=== PATIENT | male | born 1955 | race Caucasian/White ===

== ENCOUNTER 2019-12-25 08:23 | Emergency (ER) | payer OTHER, SELFPAY ==
--- NOTE | 2019-12-25 | XR_ITS ---
EXAMINATION: XR HIP, LEFT CLINICAL INFORMATION: Left hip pain status post injury. COMPARISON: None TECHNIQUE: Two views of the left hip. FINDINGS: Mild left hip degenerative joint changes are seen. There is no acute fracture or dislocation. Mild cam femoroacetabular impingement is noted. The bony pelvis is intact. The soft tissues are unremarkable. IMPRESSION: 1. Mild left hip osteoarthritis. Possible mild left cam femoroacetabular impingement.
[2019-12-25 09:29] VITALS: BP 114/76; PULSE 65; RESP 14; TEMP 36.7; O2SAT 97; BMI 21.4
--- NOTE | 2019-12-25 09:52 | ED_ITS ---
HPI - Extremity Injury (Lower) General Chief Complaint: Extremity Injury, Lower Stated Complaint: left leg pain from lifting Time Seen by Provider: 12/25/19 09:12 Source: patient Mode of arrival: ambulatory Limitations: no limitations History of Present Illness HPI Narrative: 64 yo male with no known medical history here with left hip pain with radiation to the left thigh and hip s/p lifting a heavy object on Wednesday. Has tried topical CBD with continued symptoms. No numbness/tingling/incontinence. MD complaint: hip injury Onset (ago): day(s) Injury: Left: hip Type of Injury: other (lifting ) Place: home Severity: moderate Relieving factors: cold therapy and rest Exacerbating factors: weight bearing, movement and palpation Context: other (lifting ) Associated symptoms: ambulatory Other symptoms: none Treatments prior to arrival: cold therapy Related Data Previous Rx's Medication Instructions Recorded cyclobenzaprine 10 mg PO Q8H #20 tab 12/25/19 lidocaine [Lidoderm] 1 patch TOPICAL Q24H #15 ea 12/25/19 Allergies Allergy/AdvReac Type Severity Reaction Status Date / Time ibuprofen AdvReac Stomach Verified 12/25/19 09:27 Upset Review of Systems Review of Systems: Yes all other systems are reviewed and are negative Constitutional: Constitutional: Denies body ache(s), Denies chills and Denies weakness Eyes: Eyes: Denies change in vision ENT: Reports system reviewed and no additional complaints, except as documented Cardiovascular: Cardiovascular: Denies chest pain, Denies leg edema and Denies dyspnea Respiratory: Respiratory: Denies cough and Denies dyspnea Gastrointestinal: Gastrointestinal: Denies abdominal pain, Denies nausea and Denies vomiting Genitourinary: Genitourinary: Reports no additional male genitourinary complaints and Denies urinary incontinence Musculoskeletal: Musculoskeletal: Denies abnormal gait, Reports arthralgias, Denies numbness and Denies tingling Integumentary/Breasts: Skin/Breast: Denies rash Neurologic: Denies Abnormal speech present, Denies abnormal gait, Denies focal weakness, Denies numbness, Denies Sensory deficit (Neuro), Denies tingling, Denies paresthesias and Denies weakness Psychiatric: Psychiatric: Reports no additional psychiatric complaints PMFSH Past Medical History Attestation statement: The following information was validated with the patient. Source: obtained from family Medical History No known health problems No known health problems No known health problems Social History Social History Alcohol intake: never Smoking Status: Never smoker Use of substances other than those prescribed or required for medical reasons: No Advance Directives: No Advance Directives Information Provided: Yes Physical Exam Vital Signs and I&O and Narrative: Vital Signs and I&O: Vital Signs Temp 98.0 F 12/25/19 09:29 Pulse 65 12/25/19 09:29 Resp 14 12/25/19 09:29 BP 114/76 12/25/19 09:29 Pulse Ox 97 12/25/19 09:29 Intake & Output 12/24/19 12/25/19 12/25/19 18:59 06:59 18:59 Weight 62.142 kg Body Mass Index 21.4 Const: General: cooperative, healthy appearing and alert Orientation/consciousness: patient oriented x3 Limitations: no limitations HENMT: Head: Yes normal to inspection Ears: hearing grossly normal bilaterally General nose exam: Normal external nose present Mouth: Normal oral and palatal mucosa present Throat: Yes posterior oropharynx normal Eyes: General: appearance normal, both eyes and all related structures Pupils: Equal, round and reactive pupils present Neck: Neck: Yes normal visual inspection Chest: Chest palpation & inspection: normal inspection of the chest Resp: Effort & Inspection: normal respiratory effort Auscultation: clear to auscultation bilaterally Cardio: Palpation: normal PMI Rate: regular rate Rhythm: regular rhythm Peripheral pulses: Peripheral pulses 2+ throughout, popliteal pulses present, posterior tibial pulses present and dorsalis pedis present GI: Inspection: Yes normal to inspection Palpation (GI): Soft to palpation and nontender Auscultation: normal bowel sounds : General: Yes no CVA tenderness Back/Spine/Pelvis: Back: no CVA tenderness Thoracic/Lumbar Spine: thoracic and lumbar spine normal to inspection, No paraspinal muscle tenderness, No lumbar spinal tenderness and straight leg raise positive (left ) Sacroiliac joints: on the left tender to palpation and by passive hyperextension of lower ext Skin: General skin exam: no rashes or lesions noted Neuro: General: patient oriented x3, Normal light touch and pain sensation and normal sensation to monofilament Cranial nerves: Yes CN's II-XII intact bilaterally and Yes Equal, round and reactive pupils present Cognition (Neuro): normal cognition Speech: No Abnormal speech present Gait exam (Ne uro): Normal gait present Motor exam (neuro): 5/5 motor strength present throughout Sensory Exam: No Sensory deficit (Neuro) Coordination: [id number] test normal and islc-[id number] test normal Extrem: General: Yes normal to inspection Right lower extremity: normal to inspection Left lower extremity: normal to inspection and hip/thigh (tenderness over posterior hip, FROM, pain with straight leg raise, +spasm) Details: normal to inspection; no swelling MDM - Extremity Injury (Lower) MDM Narrative Medical decision making narrative: x-ray negative. Exam c/w with sacroilitis, muscular spasm. Discussed supportive care and follow-up with orthopedics if no better. Imaging Data hip x-ray: Attestation: I personally reviewed and interpreted this imaging study as follows: My impression: Mild OA. no acute fracture Radiologist's impression: EXAMINATION: XR HIP, LEFT CLINICAL INFORMATION: Left hip pain status post injury. COMPARISON: None TECHNIQUE: Two views of the left hip. FINDINGS: Mild left hip degenerative joint changes are seen. There is no acute fracture or dislocation. Mild cam femoroacetabular impingement is noted. The bony pelvis is intact. The soft tissues are unremarkable. IMPRESSION: 1. Mild left hip osteoarthritis. Possible mild left cam femoroacetabular impingement. Discharge Plan Discharge Clinical Impression: Sacroiliac inflammation Patient Disposition: Home, Self-Care Instructions: Sacroiliitis (ED) Additional Instructions: Heat to the area, gentle stretching of the affected side Continue Tylenol as discussed Prescriptions: New cyclobenzaprine 10 mg tablet 10 mg PO Q8H Qty: 20 RF: 0 lidocaine [Lidoderm] 5 % adhesive patch,medicated 1 patch topical Q24H Qty: 15 RF: 0 Referrals: Brady Pruett MD [Physician] - 5 days (if no better) Neelam Dyer MD [Primary Care Provider] - 2 days Stand Alone Forms: Work/School Release
== END 2019-12-25 11:39 | disposition home or self-care (01) ==
PROVIDERS: Emergency Provider Internal Medicine; PCP Internal Medicine
DX: M46.1 Sacroiliitis, not elsewhere classified (principal); M25.552 Pain in left hip
CPT/HCPCS: 73502; 99283; 99284

== ENCOUNTER 2020-02-09 08:58 | Outpatient (REF) | payer OTHER, SELFPAY ==
--- NOTE | 2020-02-09 09:15 | MR_ITS ---
EXAMINATION: MR LUMBAR SPINE WITHOUT CONTRAST CLINICAL INFORMATION: Left leg pain. COMPARISON: X-ray dated 07/22/2019. TECHNIQUE: MRI of the lumbar spine was obtained using routine sequences without contrast. FINDINGS: VERTEBRAL BODIES AND PARASPINAL STRUCTURES: The marrow signal is homogeneous. There are no compression fractures or subluxations. There is mild edema in the left posterior paraspinal soft tissues from L5 to S1, presumably stress-related in etiology. Small renal cysts noted. The imaged bony pelvis is unremarkable. CONUS MEDULLARIS AND CAUDA EQUINA: Normal, terminating at the level of T12. No lower cord signal abnormality is seen. The cauda equina nerve roots are normal. A small fatty filum is visible, measuring approximately 1.5 mm in transverse diameter. SPINAL LEVELS: L1-L2: Well-hydrated normal appearance of the disc. L2-L3: Normal disc hydration. Patent central canal. L3-L4: Left foraminal disc protrusion mildly distorts the exiting L3 nerve root. L4-L5: Left foraminal disc protrusion and mild endplate spurring results in [id number]-ml-zlqrezja encroachment. L5-S1: Mild disc bulge and endplate spurring with mild bilateral foraminal encroachment. No central canal stenosis. MR/MR lumbar spine wo con IMPRESSION: Left foraminal disc protrusion at L3-L4 with mild distortion of the exiting left L3 nerve root. Additional left foraminal disc protrusion at L4-L5 without nerve root impingement. Mild spondylosis at L5-S1 with mild bilateral foraminal narrowing. Mild edema in the lower left posterior paraspinal soft tissues.
== END 2020-02-09 08:59 | disposition home or self-care (01) ==
LOC: HO.MRI 08:58
PROVIDERS: PCP Internal Medicine; Visit Provider Internal Medicine
DX: M51.36 Other intervertebral disc degeneration, lumbar region (principal)
CPT/HCPCS: 72148

== ENCOUNTER 2020-03-28 08:00 | Outpatient (RCR) | payer OTHER, SELFPAY ==
--- NOTE | 2020-05-31 08:34 | MHC.PT.DC ---
[facility] [place] Office [place] Office [place] Office [address] Demetrio Silveira [address] [phone] F: [phone] F: [phone] F: [phone] F: [phone] Physical Therapy Discharge Report Diagnosis: intervertebral disc degeneration, lumbar region Date of Surgery: NA Date of Evaluation: 02/22/20 Date of Discharge: 04/24/20 Treatments to Date: 9 Cancellations to Date: 0 No Shows to Date: 0 Discharge Status: Independent with HEP Recommend MD Follow-up Discharge Summary: Standing side glides and prone manual side glides around upper lumbar are most beneficial. He reported only back pain during these maneuvers and no leg numbness. I continued pelvic and leg strengthening to improve functional use of legs. Pt stopped his course of PT. He did not finish his POC. It was not a scheduled d/c. Electronically signed by: Zo Pathak PT DPT Please sign and return to therapist. Thank you for your referral.
== END 2020-05-31 09:01 | disposition other institution (70) ==
LOC: HO.PT 08:00
PROVIDERS: PCP Internal Medicine; Visit Provider Internal Medicine
DX: M51.36 Other intervertebral disc degeneration, lumbar region (principal)
CPT/HCPCS: 97014; 97110; 97140; 97162

== ENCOUNTER 2020-05-27 07:56 | Outpatient (REF) | payer OTHER, SELFPAY ==
[2020-05-27 08:36] LABS: MANUAL DIFF FLAG NO
[2020-05-27 08:44] LABS: Basophils Percent Auto 0.6 % (0-2); Eosinophils Absolute Auto 0.4 X10*3/uL (0.0-0.4); Eosinophils Percent Auto 7.1 % (0-4); Hematocrit 44.8 % (42-52); Hemoglobin 15.1 g/dl (14.0-18.0); Imm Gran Abs Auto 0.03 X10*3/uL (0.00-0.03); Imm Gran Pct Auto 0.5 % (0.0-0.4); Lymphocytes Absolute Auto 1.9 X10*3/uL (1.2-4.9); Lymphocytes Percent Auto 29.9 % (20-40); Mean Corpuscular HGB Conc 33.7 g/dl (31.0-36.0); Mean Corpuscular Hemoglobin 32.1 pg (27.0-33.0); Mean Corpuscular Volume 95.1 fL (80-98); Mean Platelet Volume 8.2 fL (9.4-12.4); Monocytes Absolute Auto 0.5 X10*3/uL (0.1-1.2); Monocytes Percent Auto 7.8 % (2-11); Neutrophils Absolute Auto 3.4 X10*3/uL (2.0-8.3); Neutrophils Percent Auto 54.1 % (45-73); Platelet Count 305 X10*3/uL (160-400); Red Blood Count 4.71 X10*6/uL (4.60-5.80); Red Cell Distribution Width 12.4 % (11.0-16.0); White Blood Count 6.2 X10*3/uL (4.8-10.8)
[2020-05-27 09:14] LABS: Alanine Aminotransferase 42 U/L (0-40); Albumin Level 4.1 g/dL (3.5-5.0); Alkaline Phosphatase 84 U/L (39-117); Anion Gap 11 (12-20); Aspartate Amino Transferase 29 U/L (5-37); Bilirubin Total 0.9 mg/dL (0.0-1.0); Blood Urea Nitrogen 16 mg/dL (9-16); Calcium 8.5 mg/dL (8.4-10.2); Carbon Dioxide 28 mmol/L (22-29); Chloride 104 mmol/L (96-108); Cholesterol 231 mg/dL; Estimated Glomerular Filt Rate > 60; Glucose Fasting 103 mg/dL (60-99); HDL Cholesterol 46 mg/dL; LDL Cholesterol Calculated 158 mg/dl; Potassium 4.3 mmol/L (3.3-5.1); Sodium 139 mmol/L (135-145); Total Protein 7.4 g/dL (6.5-8.0); Triglycerides 139 mg/dL
== END 2020-05-27 07:57 | disposition home or self-care (01) ==
LOC: HO.LAB 07:56
PROVIDERS: PCP Internal Medicine; Visit Provider Internal Medicine
DX: D70.9 Neutropenia, unspecified (principal); M47.816 Spondylosis without myelopathy or radiculopathy, lumbar region; E78.5 Hyperlipidemia, unspecified
CPT/HCPCS: 36415; 80053; 80061; 85025

== ENCOUNTER 2020-12-17 14:49 | Outpatient (REF) | payer OTHER, SELFPAY ==
[2020-12-17 15:10] LABS: MANUAL DIFF FLAG NO
[2020-12-17 15:21] LABS: Basophils Percent Auto 0.6 % (0-2); Eosinophils Absolute Auto 0.2 X10*3/uL (0.0-0.4); Eosinophils Percent Auto 2.9 % (0-4); Hematocrit 43.9 % (42-52); Hemoglobin 14.8 g/dl (14.0-18.0); Imm Gran Abs Auto 0.02 X10*3/uL (0.00-0.03); Imm Gran Pct Auto 0.3 % (0.0-0.4); Lymphocytes Absolute Auto 1.5 X10*3/uL (1.2-4.9); Lymphocytes Percent Auto 23.4 % (20-40); Mean Corpuscular HGB Conc 33.7 g/dl (31.0-36.0); Mean Corpuscular Hemoglobin 32.5 pg (27.0-33.0); Mean Corpuscular Volume 96.3 fL (80-98); Mean Platelet Volume 8.2 fL (9.4-12.4); Monocytes Absolute Auto 0.5 X10*3/uL (0.1-1.2); Monocytes Percent Auto 7.7 % (2-11); Neutrophils Absolute Auto 4.1 X10*3/uL (2.0-8.3); Neutrophils Percent Auto 65.1 % (45-73); Platelet Count 295 X10*3/uL (160-400); Red Blood Count 4.56 X10*6/uL (4.60-5.80); Red Cell Distribution Width 12.5 % (11.0-16.0); White Blood Count 6.3 X10*3/uL (4.8-10.8)
[2020-12-17 15:56] LABS: Alanine Aminotransferase 22 U/L (0-40); Albumin Level 4.1 g/dL (3.5-5.0); Alkaline Phosphatase 79 U/L (39-117); Anion Gap 10 (12-20); Aspartate Amino Transferase 21 U/L (5-37); Blood Urea Nitrogen 11 mg/dL (9-16); Calcium 8.9 mg/dL (8.4-10.2); Carbon Dioxide 30 mmol/L (22-29); Chloride 103 mmol/L (96-108); Estimated Glomerular Filt Rate > 60; Glucose Random 91 mg/dL (60-115); Potassium 4.5 mmol/L (3.3-5.1); Sodium 138 mmol/L (135-145); Total Protein 7.3 g/dL (6.5-8.0)
== END 2020-12-17 14:50 | disposition home or self-care (01) ==
LOC: HO.LAB 14:49
PROVIDERS: PCP Internal Medicine; Visit Provider Nurse Practitioner Family
DX: M79.89 Other specified soft tissue disorders (principal)
CPT/HCPCS: 36415; 80053; 85025

== ENCOUNTER 2020-12-23 07:07 | Outpatient (REF) | payer OTHER, SELFPAY ==
[2020-12-23 07:46] LABS: Alanine Aminotransferase 28 U/L (0-40); Albumin Level 4.2 g/dL (3.5-5.0); Alkaline Phosphatase 80 U/L (39-117); Anion Gap 10 (12-20); Aspartate Amino Transferase 24 U/L (5-37); Bilirubin Total 1.4 mg/dL (0.0-1.0); Blood Urea Nitrogen 13 mg/dL (9-16); Carbon Dioxide 28 mmol/L (22-29); Chloride 105 mmol/L (96-108); Cholesterol 216 mg/dL; Estimated Glomerular Filt Rate > 60; Glucose Fasting 101 mg/dL (60-99); HDL Cholesterol 49 mg/dL; LDL Cholesterol Calculated 146 mg/dl; Potassium 4.2 mmol/L (3.3-5.1); Sodium 139 mmol/L (135-145); Total Protein 7.5 g/dL (6.5-8.0); Triglycerides 108 mg/dL
== END 2020-12-23 07:08 | disposition home or self-care (01) ==
LOC: HO.LAB 07:07
PROVIDERS: PCP Internal Medicine; Visit Provider Internal Medicine
DX: R73.02 Impaired glucose tolerance (oral) (principal); E78.5 Hyperlipidemia, unspecified
CPT/HCPCS: 36415; 80053; 80061

== ENCOUNTER 2021-01-25 10:01 | Emergency (ER) | payer OTHER, SELFPAY ==
--- NOTE | ~2021-01-25 | XR_ITS ---
EXAMINATION: XR CHEST CLINICAL INFORMATION: Shortness of breath. COMPARISON: 05/30/2019 chest radiographs. TECHNIQUE: Frontal view of the chest was obtained. FINDINGS: No significant abnormality is noted involving the heart, lungs, mediastinum, bony thorax or soft tissues. XR/XR chest 1V IMPRESSION: No acute cardiopulmonary process.
[2021-01-25 10:05] VITALS: BP 128/75; PULSE 70; RESP 19; TEMP 36.1; O2SAT 96; BMI 21.9
--- NOTE | 2021-01-25 10:26 | ECG_ITS ---
Test Reason : CHEST PAIN Blood Pressure : / mmHG Vent. Rate : 066 BPM Atrial Rate : 066 BPM P-R Int : 168 ms QRS Dur : 104 ms QT Int : 380 ms P-R-T Axes : 053 -31 028 degrees QTc Int : 398 ms Normal sinus rhythm Left axis deviation RSR' or QR pattern in V1 suggests right ventricular conduction delay Abnormal ECG No previous ECGs available Referred By: Malinda Gutiérrez Electronically Signed By:ANNE-MARIE GUIDRY MD
[2021-01-25 10:29] VITALS: BP 130/69; PULSE 68; RESP 16; O2SAT 96
--- NOTE | 2021-01-25 10:29 | ED.URI ---
HPI - URI/Sore Throat General Chief Complaint: Upper Respiratory Symptoms Stated Complaint: chest pain with cough Time Seen by Provider: 01/25/21 10:08 History of Present Illness HPI Narrative: 65-year-old male presents today with having coughing upper respiratory symptoms. Symptom has been ongoing for the last few months. Patient denies any weight loss. Denies any fever chills. Patient did not receive his coronavirus vaccine. Related Data Previous Rx's Medication Instructions Recorded doxycycline hyclate 100 mg tablet 100 mg PO BID 7 Days #14 tab 12/17/20 azithromycin 250 mg tablet See Rx Instructions .ROUTE 01/25/21 .COMPLEX #6 tab Allergies Allergy/AdvReac Type Severity Reaction Status Date / Time celecoxib [Celebrex] Allergy Intermediate palpitation Verified 12/18/20 09:57 s ibuprofen [IBUPROFEN] Allergy Mild STOMACH Verified 12/18/20 09:57 UPSET Review of Systems Review of Systems: Positive generalized malaise. Positive coughing upper respiratory symptoms All systems reviewed otherwise negative [facility] Past Medical History Attestation statement: The following information was validated with the patient. Medical History Coccyalgia Dyslipidemia Eosinophilia Fx sacrum/coccyx-closed Impaired glucose tolerance Lumbar degenerative disc disease Lumbar spondylosis Neutropenia Osteoarthritis of left hip Spider bite Surgical History No pertinent past surgical history Family History Family History Father Pancreatic cancer Mother Stomach cancer Brother No problems noted. Sister No problems noted. Son No problems noted. Father Pancreatic cancer Mother Stomach cancer Brother No problems noted. Sister No problems noted. Son No problems noted. Social History Social History Housing: House Alcohol intake: former Patient Tobacco Use Status: Never used Tobacco e-Cigarette/Vaping Use: Never Used Second Hand Smoke Exposure: Yes Advance Directives: No Advance Directives Information Provided: No service: No Current occupational status: employed Physical Exam Vital Signs: Vital Signs: Last Vital Signs Temp 97 F 01/25/21 10:05 Pulse 68 01/25/21 10:29 Resp 16 11/06/21 10:29 BP 130/69 01/25/21 10:29 Pulse Ox 96 01/25/21 10:29 Body Mass Index 21.9 Appearance: Alert. Oriented X3. No acute distress. Eyes: Pupils equal, round and reactive to light. ENT: Pharynx normal. Neck: Normal inspection. Neck supple. No lymph nodes noted. No crepitus CVS: Normal heart rate and rhythm. Pulses normal. Normal S1 and S2 Respiratory: No respiratory distress. Breath sounds normal. No Wheezing. No rales Abdomen: Soft and nontender. No rigidity. No distention. good BS x4 Skin: Skin warm and dry. Normal skin color. Normal skin turgor. Extremities: No lower extremity edema. Neurovascular intact to all extremities. No Lacerations. No Rash Neuro: Oriented X 3. No motor deficit. No sensory deficit. Moving all extermities. No slurred speech MDM - URI/Sore Throat MDM Narrative Medical decision making narrative: Patient's EKG showed a sinus pattern heart rate is 70 NM QRS QT within normal limits is no acute ST segment elevation. Patient has coughing congestion upper respiratory symptoms. COVID test was negative. Chest x-ray did not show any focal infiltrate. O2 sat is normal. Will discharge patient home. In stable condition. Medical Records Attestation: I reviewed the patient's medical records. Lab Data Attestation: I reviewed the patient's lab results. Labs: Lab Results 01/25/21 Range/Units 10:46 Influenza Type A (PCR) NEGATIVE (Negative) Influenza Type B (PCR) NEGATIVE (Negative) RSV RNA Qual (PCR) NEGATIVE (Negative) SARS-CoV-2 RNA (RT-PCR) NEGATIVE (Negative) Discharge Plan Discharge Clinical Impression: Upper respiratory infection Patient Disposition: Home, Self-Care Instructions: Upper Respiratory Infection (ED) Prescriptions: New azithromycin 250 mg tablet See Rx Instructions .ROUTE .COMPLEX Qty: 6 RF: 0 No Action doxycycline hyclate 100 mg tablet 100 mg PO BID 7 Days Qty: 14 RF: 0 Referrals: Neelam Dyer MD [Primary Care Provider] - 2 days
--- NOTE | 2021-01-25 10:31 | PC.NURSE ---
patient awake and alert. skin pwd, resp even and non labored. speaking in full, clear sentences. c/o cough over the past few months, worsening over the past few days. c/o headache and slight chest wall pain with cough. NSR via tele.
[2021-01-25 12:07] LABS: Influenza A PCR NEGATIVE (Negative); Influenza B PCR NEGATIVE (Negative); Resp Syncy Virus RNA Qual PCR NEGATIVE (Negative); SARS COV2 PCR INHOUSE NEGATIVE (Negative)
== END 2021-01-25 13:11 | disposition home or self-care (01) ==
PROVIDERS: Emergency Provider Emergency Medicine Emergency Medical Services; PCP Internal Medicine
DX: R07.9 Chest pain, unspecified (principal); R05.9 Cough, unspecified; Z20.822 Contact with and (suspected) exposure to COVID-19; Z79.899 Other long term (current) drug therapy
CPT/HCPCS: 0241U; 36415; 71045; 93005; 99283; 99284

== ENCOUNTER 2021-02-06 13:48 | Emergency (ER) | payer OTHER, SELFPAY ==
[2021-02-06 14:25] VITALS: BP 120/71; PULSE 68; RESP 17; TEMP 36.4; O2SAT 95; BMI 21.9
--- NOTE | 2021-02-06 15:16 | ED_ITS ---
HPI - Eye Problem General Chief complaint: Eye Problems Stated complaint: l eye red painful Time Seen by Provider: 02/06/21 14:44 Source: patient Mode of arrival: ambulatory Limitations: no limitations History of Present Illness HPI Narrative: 65-year-old male with no known medical history presents to the emergency department with left eye redness since this morning X4 hours. Patient states that after he got out of the shower he noted that his eye was stinging, when he looked in the mirror his left eye appeared to have blood in it in the lateral aspects. He states he felt discomfort but he did not feel pain. He also mentions that earlier today he was holding a glass, that broke, and he is unsure whether or not he has glass in his left eye. He states he does not feel like there is any foreign bodies in the eyes. He denies vision changes, photophobia, pain with eye movement, headache, history of hypertension, dizziness, chest pain, shortness of breath, fevers, chills, palpitations, cough, sneezing. MD chief complaint: eye pain and eye redness Onset (ago): hour(s) (4) Onset description: sudden Duration: constant Location: left eye Eye Symptoms: other ( discomfort ) Place: home Mechanism: none Severity: mild Associated symptoms: none Treatments Prior to Arrival: none Related Data Previous Rx's Medication Instructions Recorded azithromycin 250 mg tablet See Rx Instructions .ROUTE 01/25/21 .COMPLEX #6 tab guaifenesin 100 mg/5 mL oral liquid 200 mg (10 mL) PO Q6H PRN #473 ml 01/29/21 Allergies Allergy/AdvReac Type Severity Reaction Status Date / Time celecoxib [Celebrex] Allergy Intermediate palpitation Verified 02/06/21 14:24 s ibuprofen [IBUPROFEN] Allergy Mild STOMACH Verified 02/06/21 14:24 UPSET Review of Systems Review of Systems: Constitutional : No Weight loss, No Fever, No Chills, No Fatigue, No Malaise ENT/Mouth : No sore throat, No Rhinorrhea Eyes: No Eye Pain, No Swelling, + Redness, + left eye discomfort Cardiovascular : No Chest Pain, No SOB, No Dyspnea on Exertion, No Orthopnea, No Edema, No Palpitations Respiratory : No Cough, No Sputum, No Wheezing Gastrointestinal : No Nausea, No Vomiting, No Diarrhea, No Constipation, No abdominal Pain, No Hematochezia, No Melena Genitourinary : No Dysuria, No Urinary Frequency, No Hematuria, Musculoskeletal : No joint pain, No Myalgias, No Joint Swelling Skin : No Skin Lesions, No rash Neuro : No Weakness, No Numbness, No Dizziness, No Headache All other systems reviewed and are negative [facility] Past Medical History Attestation statement: The following information was validated with the patient. Source: old records reviewed and nursing notes reviewed Medical History Coccyalgia Dyslipidemia Eosinophilia Fx sacrum/coccyx-closed Impaired glucose tolerance Lumbar degenerative disc disease Lumbar spondylosis Neutropenia Osteoarthritis of left hip Spider bite Surgical History No pertinent past surgical history Family History Family History Father Pancreatic cancer Mother Stomach cancer Brother No problems noted. Sister No problems noted. Son No problems noted. Father Pancreatic cancer Mother Stomach cancer Brother No problems noted. Sister No problems noted. Son No problems noted. Social History Social History Housing: House Alcohol intake: former Patient Tobacco Use Status: Never used Tobacco e-Cigarette/Vaping Use: Never Used Second Hand Smoke Exposure: Yes Advance Directives: No Advance Directives Information Provided: Yes service: No Current occupational status: employed Physical Exam Vital Signs: Vital Signs: Last Vital Signs Temp 97.5 F 02/06/21 14:25 Pulse 68 02/06/21 14:25 Resp 17 02/06/21 14:25 BP 120/71 02/06/21 14:25 Pulse Ox 95 02/06/21 14:25 Body Mass Index 21.9 Appearance: Alert.? Oriented X3.? No acute distress.? Head: Normocephalic, atraumatic, no step-offs or deformities Eyes: Pupils equal, round and reactive to light.?+ subconjunctival hemorrhage noted to the lateral aspect of left eye. Normal extraocular movements. Normal right eye. No visible foreign body in bilateral eyes. ENT: Pharynx normal.? Neck: Normal inspection.? Neck supple.? CVS: Normal heart rate and rhythm.? Pulses normal.? Respiratory: No respiratory distress.? Breath sounds normal.? Abdomen: Soft and nontender.? Skin: Skin warm and dry.? Normal skin color.? Normal skin turgor.? Extremities: No lower extremity edema.? No calf ttp. 5/5 strength to bilateral upper and lower extremities Back: No midline tenderness, no C-spine tenderness, full range of motion, no CVA tenderness bilaterally Neuro: Oriented X 3.? No motor deficit.? No sensory deficit. Course Reevaluation(s) Reevaluation #1: No uptake seen on fluorescein stain. No corneal abrasions or foreign bodies noted. This is likely a subconjunctival hemorrhage he has been advised to follow-up with ophthalmology. I am not concerned for bacterial conjunctivitis. 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 Safe for DC home Time: 15:40 MDM - Eye Problem MDM Narrative Medical decision making narrative: 1515 65-year-old male with no known medical history presents to the emergency department with left eye redness since this morning X4 hours. Denies trauma to the area. Denies pain but reports slight discomfort. Denies vision changes, pain with eye movment, NAVA, coughing, sneezing, straining. Upon physical examination patient appears comfortable and is sitting upright on a recliner. He appears to be in no distress. Vital signs are stable and patient is not noted to be hypertensive. S1 and S2 appreciated. No murmurs. Lungs are clear to auscultation. Abdomen soft nontender nondistended. There is subconjunctival hemorrhage noted to the lateral aspect of the left eye. Right eye is normal. Pupils equal round reactive to light bilaterally. No photophobia was shining light in bilateral eyes. Extraocular movements intact. Patient's vision is not affected, therefore visual acuity test will not be done. Patient able to read things in front of him. Bilateral pressures were taken of the eyes, left eyes pressure was 15, right eye was 16. Unlikely that this is closed angle glaucoma. Unlikely that this is traumatic iritis. I will do a fluorescein stain to ensure there is no foreign bodies within the eye, and to ensure that there is no corneal abrasions. At glance, there is no evident foreign bodies in the eye. Critical Care Time Critical Care Time Critical Care Time: No Discharge Plan Discharge Clinical Impression: Subconjunctival hemorrhage Qualifiers: Laterality: left Qualified Code(s): H11.32 - Conjunctival hemorrhage, left eye Patient Disposition: Home, Self-Care Instructions: Subconjunctival Hemorrhage (ED) Additional Instructions: Follow up with ophthalmology Follow-up with your primary care provider this week. Return to the emergency department with new or worsening symptoms. In case of emergency call 911 Prescriptions: No Action azithromycin 250 mg tablet See Rx Instructions .ROUTE .COMPLEX Qty: 6 RF: 0 guaifenesin 100 mg/5 mL liquid 200 mg PO Q6H PRN (Reason: cough) Qty: 473 RF: 0 Referrals: Hasmukh Wiseman [Physician] - 2 days Neelam Dyer MD [Primary Care Provider] - 2 days Stand Alone Forms: Work/School Release Interventions: ED Discharge Assessment Last Done: 02/06/21 15:56 Discharge Date/Time: 02/06/21 15:56
[2021-02-06] MEDS: Tetracaine HCl/PF 0.5% Oph Sol 4 ML DROPS 1 DROP EYE-BOTH (15:27)
[2021-02-06] MEDS: Fluorescein Sodium STRIP 1 STRIP EYE-BOTH (15:27)
== END 2021-02-06 15:56 | disposition home or self-care (01) ==
PROVIDERS: Emergency Provider Emergency Medicine Emergency Medical Services; PCP Internal Medicine
DX: H11.32 Conjunctival hemorrhage, left eye (principal)
CPT/HCPCS: 99283

== ENCOUNTER 2021-04-21 06:54 | Outpatient (REF) | payer OTHER, SELFPAY ==
[2021-04-21 08:02] LABS: Alanine Aminotransferase 45 U/L (0-40); Albumin Level 3.8 g/dL (3.5-5.0); Alkaline Phosphatase 91 U/L (39-117); Anion Gap 10 (12-20); Aspartate Amino Transferase 34 U/L (5-37); Bilirubin Total 0.6 mg/dL (0.0-1.0); Blood Urea Nitrogen 12 mg/dL (9-16); Calcium 8.6 mg/dL (8.4-10.2); Carbon Dioxide 29 mmol/L (22-29); Chloride 104 mmol/L (96-108); Cholesterol 227 mg/dL; Estimated Glomerular Filt Rate > 60; Glucose Fasting 93 mg/dL (60-99); HDL Cholesterol 40 mg/dL; LDL Cholesterol Calculated 168 mg/dl; Potassium 4.2 mmol/L (3.3-5.1); Sodium 139 mmol/L (135-145); Total Protein 7.4 g/dL (6.5-8.0); Triglycerides 96 mg/dL
== END 2021-04-21 06:55 | disposition home or self-care (01) ==
LOC: HO.LAB 06:54
PROVIDERS: PCP Internal Medicine; Visit Provider Internal Medicine
DX: R73.02 Impaired glucose tolerance (oral) (principal); E78.5 Hyperlipidemia, unspecified
CPT/HCPCS: 36415; 80053; 80061

== ENCOUNTER 2021-05-18 10:03 | Emergency (ER) | payer OTHER, SELFPAY ==
--- NOTE | ~2021-05-18 | XR_ITS ---
EXAMINATION: XR CHEST CLINICAL INFORMATION: Pain. COMPARISON: Chest done on 01/25/2021. TECHNIQUE: Frontal view of the chest was obtained. FINDINGS: No significant abnormality is noted involving the heart, lungs, mediastinum, bony thorax or soft tissues. No significant change since prior study. XR/XR chest 1V IMPRESSION: No radiographic evidence of acute cardiopulmonary disease, unchanged since 01/25/2021.
[2021-05-18 10:11] VITALS: BP 121/60; PULSE 70; RESP 18; TEMP 36.9; O2SAT 97; BMI 22.5
--- NOTE | 2021-05-18 10:23 | ED.GENADULT ---
HPI - General Adult General Chief complaint: General Medical Stated complaint: Lung & heart issues Time Seen by Provider: 05/18/21 10:23 History of Present Illness HPI narrative: Patient complains of pleuritic pain in the left side of his chest, he describes it as lung pain, it is present continuously from when he gets up to the end of the day for the past several days, it is worse with deep breath but there is no shortness of breath, pain is not exertional there is no diaphoresis no fainting no feeling faint no exertional symptoms no vomiting He has no leg pain or calf pain, there is no leg swelling, he has no history of blood clots He just recovered from COVID 2 weeks ago and had lots of coughing most of which is gone now Related Data Home Medications Medication Instructions Recorded Confirmed No Known Home Meds 04/21/21 04/21/21 Allergies Allergy/AdvReac Type Severity Reaction Status Date / Time celecoxib [Celebrex] Allergy Intermediate palpitation Verified 04/21/21 08:15 s ibuprofen [IBUPROFEN] Allergy Mild STOMACH Verified 04/21/21 08:15 UPSET Review of Systems Review of Systems: Positive for chest pain with deep breath Negatives are no fever no chills no dizziness no weakness no fainting no feeling faint no palpitations no abrupt onset no relation to exertion no shortness of breath or difficulty breathing no sweating no abdominal pain no nausea or vomiting no extremity pain no calf swelling no leg swelling no numbness weakness or tingling Yes all other systems are reviewed and are negative PMFSH Past Medical History Source: nursing notes reviewed Medical History (Updated 05/19/21 @ 00:01 by Background Molly) Coccyalgia Dyslipidemia Eosinophilia Fx sacrum/coccyx-closed Impaired glucose tolerance Lumbar degenerative disc disease Lumbar spondylosis Neutropenia Osteoarthritis of left hip Physical exam Spider bite Surgical History No pertinent past surgical history Family History Family History Father Pancreatic cancer Mother Stomach cancer Brother No problems noted. Sister No problems noted. Son No problems noted. Father Pancreatic cancer Mother Stomach cancer Brother No problems noted. Sister No problems noted. Son No problems noted. Social History Social History Housing: House Alcohol intake: former Patient Tobacco Use Status: Never used Tobacco e-Cigarette/Vaping Use: Never Used Second Hand Smoke Exposure: Yes Advance Directives: No Advance Directives Information Provided: No service: No Current occupational status: employed Physical Exam ED Vital Signs: Vital Signs - 24 hr 05/18/21 10:11 05/18/21 12:13 Temperature 98.4 F 98.4 F Pulse Rate 70 62 Respiratory Rate 18 18 Blood Pressure 121/60 120/65 Pulse Oximetry 97 96 BMI result Body Mass Index 22.5 General appearance is no acute distress The eyes no redness or discharge The pharynx mucous membranes are moist no redness or swelling The neck is supple The chest is clear to auscultation with full symmetric equal breath sounds, there is mild discomfort with taking a deep breath and pain is easily reproducible Heart no murmur The abdomen soft nontender Extremities full range of motion x4 with no edema no calf tenderness or swelling Neuro no focal motor sensory deficits Course Course Course Narrative: Wells PE risk calculation was low risk the patient was 0 on the Wells PE score D-dimer was 202 which is below cutoff of 230 so PE very unlikely EKG did not show any evidence of cardiac disease EKG was a normal sinus rhythm, intervals were normal QT was normal, no acute ST changes no acute ischemic changes Troponin was normal for chest pain that has been going on for several days, symptoms were atypical meaning pleuritic continuous pain Chest x-ray was normal, no other acute lab abnormality, patient remained comfortable and stable throughout ER visit He recently had COVID and it is possible that his pain is an aftermath of his COVID infection Medical Decision Making Lab Data Lab results reviewed: Yes I reviewed the patient's lab results. Result diagrams: 05/18/21 11:19 05/18/21 11:19 Labs: Lab Results 05/18/21 05/18/21 05/18/21 Range/Units 11:19 11:19 11:19 WBC 5.9 (4.8-10.8) X10*3/uL RBC 4.25 L (4.60-5.80) X10*6/uL Hgb 13.7 L (14.0-18.0) g/dl Hct 40.7 L (42.0-52.0) % MCV 95.8 (80.0-98.0) fL MCH 32.2 (27.0-33.0) pg MCHC 33.7 (31.0-36.0) g/dl RDW 12.9 (11.0-16.0) % Plt Count 295 (160-400) X10*3/uL MPV 8.1 L (9.4-12.4) fL Immature Gran % (Auto) 0.5 H (0.0-0.4) % Neut % (Auto) 61.8 (45-73) % Lymph % (Auto) 23.4 (20-40) % Florence % (Auto) 8.8 (2-11) % Eos % (Auto) 4.7 H (0-4) % Baso % (Auto) 0.8 (0-2) % Lymph # (Auto) 1.4 (1.2-4.9) X10*3/uL Florence # (Auto) 0.5 (0.1-1.2) X10*3/uL Eos # (Auto) 0.3 (0.0-0.4) X10*3/uL Baso # (Auto) 0.1 (0.0-0.2) X10*3/uL Abs Immat Gran (auto) 0.03 (0.00-0.03) X10*3/uL Absolute Neuts (auto) 3.6 (2.0-8.3) x10*3/uL Absolute Nucleated RBC 0.000 (0.0-0.012) X10*3/uL Nucleated RBC % (auto) 0.0 (0.0-0.2) /100WBC D-Dimer High Sensitivty NG/ML Sodium 139 (135-145) mmol/L Potassium 4.3 (3.3-5.1) mmol/L Chloride 103 (96-108) mmol/L Carbon Dioxide 29 (22-29) mmol/L Anion Gap 11 L (12-20) BUN 15 (9-16) mg/dL Creatinine 0.80 (0.5-1.4) mg/dL Estim Creat Clear Calc 86.1 Estimated GFR > 60 Random Glucose 87 (60-115) mg/dL Calcium 8.9 (8.4-10.2) mg/dL Troponin I High Sens < 3.5 (<3.5-35.0) ng/L 05/18/21 Range/Units 11:19 WBC (4.8-10.8) X10*3/uL RBC (4.60-5.80) X10*6/uL Hgb (14.0-18.0) g/dl Hct (42.0-52.0) % MCV (80.0-98.0) fL MCH (27.0-33.0) pg MCHC (31.0-36.0) g/dl RDW (11.0-16.0) % Plt Count (160-400) X10*3/uL MPV (9.4-12.4) fL Immature Gran % (Auto) (0.0-0.4) % Neut % (Auto) (45-73) % Lymph % (Auto) (20-40) % Florence % (Auto) (2-11) % Eos % (Auto) (0-4) % Baso % (Auto) (0-2) % Lymph # (Auto) (1.2-4.9) X10*3/uL Florence # (Auto) (0.1-1.2) X10*3/uL Eos # (Auto) (0.0-0.4) X10*3/uL Baso # (Auto) (0.0-0.2) X10*3/uL Abs Immat Gran (auto) (0.00-0.03) X10*3/uL Absolute Neuts (auto) (2.0-8.3) x10*3/uL Absolute Nucleated RBC (0.0-0.012) X10*3/uL Nucleated RBC % (auto) (0.0-0.2) /100WBC D-Dimer High Sensitivty 202 NG/ML Sodium (135-145) mmol/L Potassium (3.3-5.1) mmol/L Chloride (96-108) mmol/L Carbon Dioxide (22-29) mmol/L Anion Gap (12-20) BUN (9-16) mg/dL Creatinine (0.5-1.4) mg/dL Estim Creat Clear Calc Estimated GFR Random Glucose (60-115) mg/dL Calcium (8.4-10.2) mg/dL Troponin I High Sens (<3.5-35.0) ng/L Discharge Plan Discharge Clinical Impression: Chest pain, pleuritic Patient Disposition: Home, Self-Care Additional Instructions: Your physical exam and vital signs were normal Our workup today showed that it is very unlikely that is blood clot or cardiac pain Chest x-ray was normal It is possible that the symptom is an aftermath of COVID as some patients do have chest symptoms that persist after a COVID infection, but we are not sure Return any time for any worsening chest pain any difficulty breathing any worse condition or any concerns Follow with primary doctor Prescriptions: No Action No Known Home Meds 0RF Interventions: ED Discharge Assessment Last Done: 05/18/21 12:47 Discharge Date/Time: 05/18/21 12:51
--- NOTE | 2021-05-18 10:35 | ECG_ITS ---
Test Reason : difficulty breathing (left lung) Blood Pressure : / mmHG Vent. Rate : 063 BPM Atrial Rate : 063 BPM P-R Int : 174 ms QRS Dur : 090 ms QT Int : 384 ms P-R-T Axes : 050 -21 009 degrees QTc Int : 392 ms Normal sinus rhythm Normal ECG When compared with ECG of 25-JAN-2021 10:38, No significant change was found Referred By: Bill Bah Electronically Signed By:Josr Blakely
[2021-05-18 11:24] LABS: MANUAL DIFF FLAG NO
[2021-05-18 11:26] LABS: Basophils Absolute Auto 0.1 X10*3/uL (0.0-0.2); Basophils Percent Auto 0.8 % (0-2); Eosinophils Absolute Auto 0.3 X10*3/uL (0.0-0.4); Eosinophils Percent Auto 4.7 % (0-4); Hematocrit 40.7 % (42.0-52.0); Hemoglobin 13.7 g/dl (14.0-18.0); Imm Gran Abs Auto 0.03 X10*3/uL (0.00-0.03); Imm Gran Pct Auto 0.5 % (0.0-0.4); Lymphocytes Absolute Auto 1.4 X10*3/uL (1.2-4.9); Lymphocytes Percent Auto 23.4 % (20-40); Mean Corpuscular HGB Conc 33.7 g/dl (31.0-36.0); Mean Corpuscular Hemoglobin 32.2 pg (27.0-33.0); Mean Corpuscular Volume 95.8 fL (80.0-98.0); Mean Platelet Volume 8.1 fL (9.4-12.4); Monocytes Absolute Auto 0.5 X10*3/uL (0.1-1.2); Monocytes Percent Auto 8.8 % (2-11); Neutrophils Absolute Auto 3.6 x10*3/uL (2.0-8.3); Neutrophils Percent Auto 61.8 % (45-73); Platelet Count 295 X10*3/uL (160-400); Red Blood Count 4.25 X10*6/uL (4.60-5.80); Red Cell Distribution Width 12.9 % (11.0-16.0); White Blood Count 5.9 X10*3/uL (4.8-10.8)
[2021-05-18 11:33] LABS: D Dimer High Sensitivity 202 NG/ML
[2021-05-18 11:40] LABS: Anion Gap 11 (12-20); Blood Urea Nitrogen 15 mg/dL (9-16); Calcium 8.9 mg/dL (8.4-10.2); Carbon Dioxide 29 mmol/L (22-29); Chloride 103 mmol/L (96-108); Creatinine Clr Calc Pharmacy 86.1; Estimated Glomerular Filt Rate > 60; Glucose Random 87 mg/dL (60-115); Potassium 4.3 mmol/L (3.3-5.1); Sodium 139 mmol/L (135-145)
[2021-05-18 11:47] LABS: Troponin-I High Sensitivity < 3.5 ng/L (<3.5-35.0)
[2021-05-18 12:13] VITALS: BP 120/65; PULSE 62; RESP 18; TEMP 36.9; O2SAT 96
== END 2021-05-18 12:51 | disposition home or self-care (01) ==
PROVIDERS: Physician Assistant Medical; Emergency Provider Emergency Medicine Emergency Medical Services; PCP Internal Medicine
DX: R07.81 Pleurodynia (principal); Z79.899 Other long term (current) drug therapy; Z20.822 Contact with and (suspected) exposure to COVID-19
CPT/HCPCS: 36415; 71045; 80048; 84484; 85025; 85379; 93005; 99284

== ENCOUNTER 2021-10-30 19:36 | Emergency (ER) | payer OTHER, SELFPAY ==
--- NOTE | ~2021-10-30 | XR_ITS ---
EXAMINATION: XR KNEE, RIGHT CLINICAL INFORMATION: Knee pain COMPARISON: Chest xray on 05/18/21 TECHNIQUE: Two views of the right knee. FINDINGS: Bones and soft tissues are normal. No acute fracture. Small joint effusion. Alignment is anatomic. Joint spaces are well maintained. No abnormal soft tissue calcification. XR/XR knee RT 2V IMPRESSION: Small joint effusion.
[2021-10-30 20:18] VITALS: BP 115/64; PULSE 68; RESP 16; TEMP 37.4; O2SAT 95; BMI 23.5
--- NOTE | 2021-10-30 23:10 | ED.LOWEXIN ---
HPI - Extremity Injury (Lower) General Chief Complaint: Extremity Injury, Lower Stated Complaint: left knee pain Time Seen by Provider: 10/30/21 23:09 Source: patient Mode of arrival: ambulatory Limitations: no limitations History of Present Illness HPI Narrative: 66-year-old male came in for evaluation of right knee after has been checked by autistic patient at work. Patient is complaining of right knee pain with walking but able to bear weight on it, declined any other injuries. Related Data Home Medications Medication Instructions Recorded Confirmed No Known Home Meds 04/21/21 04/21/21 Allergies Allergy/AdvReac Type Severity Reaction Status Date / Time celecoxib [Celebrex] Allergy Intermediate palpitation Verified 04/21/21 08:15 s ibuprofen [IBUPROFEN] Allergy Mild STOMACH Verified 04/21/21 08:15 UPSET Review of Systems Review of Systems: All other systems are reviewed and are negative Constitutional: Reports as per HPI and Reports no additional constitutional complaints Eyes: Reports as per HPI and Reports no additional eye complaints Reports system reviewed and no additional complaints, except as documented Cardiovascular: Reports as per HPI and Reports no additional cardiovascular complaints Respiratory: Reports as per HPI and Reports no additional respiratory complaints Gastrointestinal: Reports as per HPI and Reports no additional gastrointestinal complaints Genitourinary: Reports no additional female genitourinary complaints Musculoskeletal: Reports no additional musculoskeletal complaints Skin/Breast: Reports system reviewed and no additional complaints, except as docu Psychiatric: Reports no additional psychiatric complaints Endocrine: Reports no additional endocrine complaints Hematologic/Lymphatic: Reports no additional hematologic/lymphatic complaints Allergic/Immunologic: Reports no additional allergic/immunologic complaints Reports system reviewed and no additional complaints, except as documented and Reports Abnormal speech present [facility] Past Medical History Medical History Coccyalgia Dyslipidemia Eosinophilia Fx sacrum/coccyx-closed Impaired glucose tolerance Lumbar degenerative disc disease Lumbar spondylosis Neutropenia Osteoarthritis of left hip Physical exam Spider bite Surgical History No pertinent past surgical history Family History Family History Father Pancreatic cancer Mother Stomach cancer Brother No problems noted. Sister No problems noted. Son No problems noted. Father Pancreatic cancer Mother Stomach cancer Brother No problems noted. Sister No problems noted. Son No problems noted. Social History Social History Housing: House Alcohol intake: former Patient Tobacco Use Status: Never used Tobacco e-Cigarette/Vaping Use: Never Used Second Hand Smoke Exposure: Yes Advance Directives: No Advance Directives Information Provided: No service: No Current occupational status: employed Physical Exam Vital Signs: Vital Signs: Last Vital Signs Temp 99.3 F 10/30/21 20:18 Pulse 68 10/30/21 20:18 Resp 16 10/30/21 20:18 BP 115/64 10/30/21 20:18 Pulse Ox 95 10/30/21 20:18 O2 Del Method 10/30/21 20:18 BMI result Body Mass Index 23.5 Vital signs have been reviewed as appeared to be correct. Blood pressure normal. Heart rate normal. Respiration rate normal. Temperature normal. Oxygen saturation normal. Appearance: Alert. Oriented X3. No acute distress. Head: Normal external exam. Normocephalic. Atraumatic. No Randolph signs noted. No raccoon eyes noted Eyes: PERRLA. EOMI. Conjunctiva and sclera normal. Eyelids normal. ENT: TM's Normal. Pharynx normal. Uvula midline. Moist mucous membranes. No trismus noted. No drooling noted. No muffled voice noted. Neck: Normal inspection. Neck supple. FROM. No adenopathy. Thyroid Normal. No meningeal signs. No neck mass noted. CVS: Normal heart rate and rhythm. Heart sound normal. No murmurs noted. Pulses normal throughout. Respiratory: No respiratory distress. Painless inspiration. Breath sounds normal. No wheezes/rales/rhonchi noted. Chest nontender. No accessory muscle usage noted or decreased air movement noted. Abdomen: Soft and nontender. Bowel sounds normal in all 4 quadrants. No distention noted. No organomegaly noted. No visible injury noted. Back: No CVA tenderness. Full range of motion noted. Skin: Skin warm and dry. Normal skin color. Normal skin turgor. No rashes/lesions/lacerations noted. Extremities: Right knee tenderness, full range of motion, normal ligamentous exam, normal neurovascular exam. Neuro: Oriented X 3. Cranial nerve exam: II-XII are grossly intact No motor deficit. No sensory deficit. Reflexes normal. Course Course Course Narrative: 66-year-old male came in for evaluation of her right knee pain after incidentally been injured at work, patient is allergic to NSAIDs will recommend Tylenol, knee immobilizer, rest for 2 days, ice today MDM - Extremity Injury (Lower) Imaging Data Right knee x-ray: Attestation: I personally reviewed and interpreted this imaging study as follows: Radiologist's impression: Small joint effusion. Discharge Plan Discharge Clinical Impression: Derangement of knee, right Patient Disposition: Home, Self-Care Instructions: Contusion in Adults (ED) Prescriptions: No Action No Known Home Meds Referrals: Neelam Dyer MD [Primary Care Provider] -
[2021-10-30] MEDS: Acetaminophen 325 MG TABLET 650 MG PO (23:43)
[2021-10-30 23:44] VITALS: BP 122/75; PULSE 58
== END 2021-10-30 23:47 | disposition home or self-care (01) ==
PROVIDERS: Emergency Provider Emergency Medicine; PCP Internal Medicine
DX: M23.91 Unspecified internal derangement of right knee (principal); M25.561 Pain in right knee
CPT/HCPCS: 73560; 99283; 99284

== ENCOUNTER 2022-01-20 17:00 | Outpatient (RCR) | payer OTHER, SELFPAY ==
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
--- NOTE | 2022-03-31 09:38 | MHC.PT.DC ---
[facility] [place] Office [place] Office [place] Office [address] Demetrio Silveira [address] [facility] [phone] F: [phone] F: [phone] F: [phone] F: [phone] Physical Therapy Discharge Report Diagnosis: PAIN IN RIGHT KNEE Date of Surgery: Date of Evaluation: 01/12/22 Date of Discharge: 03/31/22 Treatments to Date: 2 Cancellations to Date: 3 No Shows to Date: 4 Discharge Status: Visit Non-compliance Discharge Summary: Pt WAS A GOOD PT CANDIDATE, HOWEVER, HE HAD POOR ATTENDANCE FOR SCHEDULED PT APPTS. A HEP WAS INITIATED TO ADDRESS HIS Rt KNEE PAIN- HIS PT GOALS WERE NOT MET. Electronically signed by: SCOTT ARREDONDO,PT Please sign and return to therapist. Thank you for your referral.
== END 2022-03-31 09:38 | disposition home or self-care (01) ==
LOC: HO.PT 17:00
PROVIDERS: Visit Provider Nurse Practitioner Family
DX: M25.561 Pain in right knee (principal)
CPT/HCPCS: 97110; 97162; 97530

== ENCOUNTER 2022-04-22 09:11 | Outpatient (REF) | payer MEDICARE, OTHER, SELFPAY ==
[2022-04-22 09:51] LABS: MANUAL DIFF FLAG NO
[2022-04-22 10:02] LABS: Basophils Percent Auto 0.6 % (0-2); Eosinophils Absolute Auto 0.3 X10*3/uL (0.0-0.4); Eosinophils Percent Auto 4.1 % (0-4); Hematocrit 44.8 % (42.0-52.0); Hemoglobin 15.1 g/dl (14.0-18.0); Imm Gran Abs Auto 0.03 X10*3/uL (0.00-0.03); Imm Gran Pct Auto 0.5 % (0.0-0.4); Lymphocytes Absolute Auto 1.5 X10*3/uL (1.2-4.9); Lymphocytes Percent Auto 24.8 % (20-40); Mean Corpuscular HGB Conc 33.7 g/dl (31.0-36.0); Mean Corpuscular Hemoglobin 32.1 pg (27.0-33.0); Mean Corpuscular Volume 95.1 fL (80.0-98.0); Mean Platelet Volume 8.2 fL (9.4-12.4); Monocytes Absolute Auto 0.4 X10*3/uL (0.1-1.2); Monocytes Percent Auto 6.3 % (2-11); Neutrophils Absolute Auto 3.9 x10*3/uL (2.0-8.3); Neutrophils Percent Auto 63.7 % (45-73); Platelet Count 288 X10*3/uL (160-400); Red Blood Count 4.71 X10*6/uL (4.60-5.80); Red Cell Distribution Width 12.4 % (11.0-16.0); White Blood Count 6.2 X10*3/uL (4.8-10.8)
[2022-04-22 10:27] LABS: Alanine Aminotransferase 27 U/L (0-40); Alkaline Phosphatase 81 U/L (39-117); Anion Gap 9 (12-20); Aspartate Amino Transferase 26 U/L (5-37); Bilirubin Total 1.1 mg/dL (0.0-1.0); Blood Urea Nitrogen 13 mg/dL (9-16); Calcium 8.3 mg/dL (8.4-10.2); Carbon Dioxide 27 mmol/L (22-29); Chloride 107 mmol/L (96-108); Cholesterol 224 mg/dL; Estimated Glomerular Filt Rate > 60; Glucose Fasting 109 mg/dL (60-99); HDL Cholesterol 41 mg/dL; Iron 119 mcg/dL (45-160); LDL Cholesterol Calculated 162 mg/dl; Percent Iron Saturation 39 % (15-50); Potassium 4.3 mmol/L (3.3-5.1); Sodium 139 mmol/L (135-145); Total Iron Binding Capacity 305 mcg/dL (228-428); Total Protein 7.2 g/dL (6.5-8.0); Triglycerides 109 mg/dL; Unsaturated Iron Binding 186 ug/dL
== END 2022-04-22 09:12 | disposition home or self-care (01) ==
LOC: HO.LAB 09:11
PROVIDERS: Visit Provider Internal Medicine
DX: Z00.00 Encounter for general adult medical examination without abnormal findings (principal); D64.9 Anemia, unspecified; E78.5 Hyperlipidemia, unspecified
CPT/HCPCS: 36415; 80053; 80061; 83540; 85025

== ENCOUNTER 2023-04-27 07:34 | Outpatient (AMB) | payer MEDICARE, SELFPAY ==
[2023-04-27 07:37] VITALS: BP 110/60; BMI 20.5
--- NOTE | 2023-04-27 07:37 | A.OFFVIS_ITS ---
Intake Vital Signs 04/27/23 07:37 Height 5 ft 7 in Weight 131 lb BMI 20.5 BP 110/60 Blood Pressure Location Lt brachial Position Sitting Intake Visit Reasons: AWV G0438 Intake Note: Patient here for an annual wellness visit Plant Mechanic Required: No Accompanied by: Self / Same As Patient Allergies celecoxib [Celebrex] Allergy (Intermediate, Verified 04/27/23 07:59) palpitations ibuprofen [IBUPROFEN] Allergy (Mild, Verified 04/27/23 07:59) STOMACH UPSET Medication List - Last Reconciled 04/27/23 by Neelam Mcgee MD No Known Home Meds HPI HPI Comments History of Present Illness Details This is a 67-year-old male that comes for his Medicare wellness exam. Last Cologuard was 2022 and was normal. Denies any chest pain or shortness of breath. Complains of unintentional weight loss but he admits he is eating healthier. He declines any form of immunizations such as influenza vaccine, pneumonia vaccine or tetanus vaccine. PPP handed to patient. He also declines advanced directives. He said he has not decided yet and does not feel the need to do it at this moment because he feels healthy. Able to walk with no assistive device. Lives alone. [facility] Medical History (Updated 04/27/23 @ 08:54 by Neelam Mcgee MD) Physical exam Impaired glucose tolerance Spider bite Lumbar degenerative disc disease Osteoarthritis of left hip Fx sacrum/coccyx-closed Eosinophilia Dyslipidemia Neutropenia Lumbar spondylosis Coccyalgia Surgical History No pertinent past surgical history Family History Father Pancreatic cancer Mother Stomach cancer Brother No problems noted. Sister No problems noted. Son No problems noted. Father Pancreatic cancer Mother Stomach cancer Brother No problems noted. Sister No problems noted. Son No problems noted. Social History Housing: House Alcohol intake: former Patient Tobacco Use Status: Never used Tobacco e-Cigarette/Vaping Use: Never Used Second Hand Smoke Exposure: Yes service: No Current occupational status: employed Cognitive needs: No Hearing needs: No Vision needs: No Questionnaire Medicare Wellness Checkup What [age] 65-70 What gender do you identify with?: male During the past 4 weeks, how much have you been bothered by emotional problems such as feeling anxious, depressed, irritable, sad or downhearted, and blue?: slightly During the past 4 weeks, has your physical & emotional health limited your social activities with family, friends, neighbors, or groups?: not at all During the past 4 weeks, how much bodily pain have you generally had?: no pain During the past 4 weeks, was someone available to help you if you needed & wanted help?: yes, a little During the past 4 weeks, what was the hardest physical activity you could do for at least 2 minutes?: light Can you get to places out of walking distance without help? (For eg., can you travel alone on buses, taxis or drive your car?): No Can you go shopping for groceries or clothes without someone's help?: Yes Can you prepare your own meals?: Yes Can you do your housework without help?: Yes Because of any health problems, do you need the help of another person with your personal care needs such as eating, bathing, dressing or getting around the house?: No Can you handle your own money without help?: Yes During the past 4 weeks, how would you rate your health in general?: very good During the past 4 weeks how have things been going for you?: pretty well Are you having difficulties driving your car?: no Do you always fasten your seat belt when you are in a car?: yes, usually During past 4 weeks, have you been bothered by the following: never: Falling or dizzy when standing up, Sexual problems?, Trouble eating well? and Tiredness or fatigue? and seldom: Teeth or denture problems? and Problems using the telephone? Have you fallen 2 or more times in the past year?: No Are you afraid of falling?: Yes Are you a smoker?: no During the past 4 weeks, how many drinks of wine, beer, or other alcoholic beverages did you have?: no alcohol at all Do you exercise for about 20 minutes 3 or more times a week?: yes, most of the time Have you been given information to help with the following?: no: Hazards in your house that might hurt you? and no: Keeping track of your medications? How often do you have trouble taking medicines the way you have been told to take them?: I do not have to take medicine How confident are you that you can control & manage most of your health problems?: very confident What is your race?: or origin or descent Mini Mental State Exam (MMSE) Orientation What is the (year) (season) (date) (day) (month)?: year, season, date, day and month Where are we (state) (county) (town or city) (hospital) (floor)?: state, county, town or city, hospital/clinic and floor Registration Name of 3 unrelated objects clearly and slowly, then ask patient to repeat all 3 of them. (1st repeat determines score. Make sure they can repeat all three): object 1, object 2 and object 3 Attention & Calculation (CHOOSE ONE) Spell WORLD backwards (DLROW): 5 letters Recall Ask patient to repeat the 3 items from question #3.: object 1, object 2 and object 3 Language Show patient a wristwatch & ask what it is. Repeat for pencil.: watch and pencil Ask the patient to repeat the phrase 'No ifs, ands, or buts' after you.: correct Ask the patient to 'take a piece of paper with their right hand' 'fold paper in half' 'place paper on floor': take paper in right hand, fold paper in half and place paper on floor Print the sentence 'CLOSE YOUR EYES' on a piece. If patient actually closes eyes then score.: followed written direction Give patient a blank piece of paper & ask to write a sentence. Score if it con tains a noun & verb.: sentence contains subject and verb Ask patient to copy figure of intersecting pentagons exactly. Score if all 10 angles & 2 intersects are included.: all 10 angles present & 2 are intersected Score Score: 30 Activity of Daily Living Bathing - sponge bath, tub bath or shower: receives no assistance (gets in/out by self, if usual bathing means Dressing - getting clothes from closets & drawers, including inner/outer garments & fasteners.: gets clothes & gets completely dressed without help Toileting - going to the 'toilet room' for urine/bowel elimination & cleaning self/arranging clothes: goes to toilet room, cleans self, arranges clothes without help Transfer: moves in & out of bed and chair without help (may use support object) Continence: controls urination/bowel movements completely by self Feeding: feeds self without help Total Score: 0 Information obtained from: patient Using telephone: independent Traveling: independent Shopping: independent Preparing meals: independent Housework: independent Taking medicine: independent Managing money: independent PHQ-9 Over the last 2 weeks, how often have you been bothered by any of the following problems? 1. Little interest or pleasure in doing things: not at all 2. Feeling down, depressed, or hopeless: not at all 3. Trouble falling or staying asleep, or sleeping too much: not at all 4. Feeling tired or having little energy: not at all 5. Poor appetite or overeating: not at all 6. Feeling bad about yourself - or that you are a failure or have let yourself o r your family down: not at all 7. Trouble concentrating on things, such as reading the newspaper or watching television: not at all 8. Moving or speaking so slowly that other people could have noticed. Or the opposite - being so fidgety or restless that you have been moving around a lot more than usual: not at all 9. Thoughts that you would be better off or of hurting yourself in some way: not at all Total score: 0 Depression Screening Interpretation: Negative Depression Screening Done: Yes 28087 - PHQ-9 Billing: Yes Source: Developed by Drs. Edwin Matos, Shayy Garcia, Sal soliman nd colleagues, with an educational bentley from [employer]. AUDIT C Alcohol Use Questionnaire (AUDIT-C) 1. How often do you have a drink containing alcohol?: Never Total Score: 0 Score Reviewed/Action Taken: No Thrive Questionnaire Date Thrive assessed: 04/27/23 I am a: Patient What is your living situation today?: I have a steady place to live Within the past 12 months, did the food you bought not last and you didn't have the money to get more?: Never true Within the past 12 months, did you worry whether your food would run out before you got money to buy more?: Never true Do you have trouble paying for medicines?: No Do you have trouble getting transportation to medical appointments?: No Do you have trouble paying your heating and electricity bill?: No Do you have trouble taking care of your child, family member or friend?: No Do you have trouble with day-to-day activities such as bathing, preparing meals, shopping, managing finances, etc.?: No Are you currently unemployed and looking for a job?: No Are you interested in more education?: No Please select the resources that you would like help with: None Currently or been in a relationship where the following occur: no concerns reported THRIVE Score: 0 Fall Risk Assessment Fall Risk Assessment Fall risk assessment: 1 Fall in past year DENISE-7 AMB Questionnaire DENISE-7 Date DENISE - 7 assessed: 04/27/23 Feeling nervous, anxious, or on edge: 0 = Not at all Not being able to stop or control worryin = Not at all Worrying too much about different things: 0 = Not at all Trouble relaxin = Not at all Being so restless that it is hard to sit still: 0 = Not at all Becoming easily annoyed or irritable: 0 = Not at all Feeling afraid as if something awful might happen: 0 = Not at all Total DENISE-7 score (0-4 normal; 5-9 mild; 10-14 moderate; 15-21 severe): 0 Source: Developed by Drs. Edwin Matos, Shayy Garcia, Sal Marquez and colleagues, with an educational bentley from [employer]. DENISE-7 Assessment Billing DENISE-7 Assessment Tool: DENISE-7 Assessment 40962 Review of Systems Const All systems reviewed & are unremarkable except as noted in HPI and below Eyes Reports no additional complaints, Denies change in vision and Denies other visual disturbances Card Denies chest pain at rest, Denies chest pain with activity, Denies edema, Denies irregular heart rhythm, Denies claudication, Denies dyspnea, Denies dyspnea on exertion, Denies orthopnea, Denies paroxysmal nocturnal dyspnea and Denies slow heart rate Resp Denies cough, Denies dyspnea and Denies dyspnea on exertion GI Denies abdominal pain, Denies change in bowel habits, Denies excessive flatus, Denies nausea and Denies vomiting Denies urinary hesitancy, Denies urinary incontinence and Denies urinary urgency Musc Denies abnormal gait, Denies atrophy, Denies deformity and Denies limited range of motion Skin/Breast Denies bleeding lesions, Denies changing lesions and Denies rash Neuro Denies abnormal gait, Denies behavioral changes, Denies confusion and Denies lack of coordination Psych Denies behavioral changes and Denies confusion Physical Exam Vital Signs: Last Vital Signs BP 110/60 04/27/23 07:37 BMI result Body Mass Index 20.5 Const General: No confusion Orientation/consciousness: patient oriented x3 and No confusion Resp Effort & Inspection: normal respiratory effort Auscultation: clear to auscultation bilaterally Cardio Jugular venous distension: no JVD Rate: regular rate Rhythm: regular rhythm Heart sounds: S1 normal heart sound present and S2 normal heart sound present Neuro General: patient oriented x3, no focal motor deficits and No confusion Cognition (Neuro): normal cognition Gait exam (Neuro): Normal gait present Romberg Test: Negative Extrem General: Yes full ROM Psych Appearance: grossly normal Office Procedures Flu Questionnaire Does the patient have a severe egg allergy?: No Immunizations flu vacc [id number] 6mos up(PF) 60 mcg(15 mcgx4)/0.5 mL IM syringe Performing Provider: Neelam Mcgee MD [facility] Documented (not given) by: JANINE Garcia on 04/27/23 08:31 Reason Not Given: Patient Refused Assessment & Plan Assessment & Plan (1) Encounter for Medicare annual wellness exam: Code(s): Z00.00 - Encounter for general adult medical examination without abnormal findings Plan: Repeat in a year. Orders: Orders T Spot TB Today Z11.1 - Encounter for screening for respiratory tuberculosis Complete Blood Count Auto Diff Today R63.4 - Abnormal weight loss Influenza [id number] Immunization Today Z23 - Encounter for immunization Lipid Panel Today E78.5 - Hyperlipidemia, unspecified Thyroid Stimulating Hormone Today R63.4 - Abnormal weight loss Free T4 (Free Thyroxine) Today R63.4 - Abnormal weight loss Comprehensive [facility]. Panel Fast Today R63.4 - Abnormal weight loss Quality Reporting (2019) Fall Risk Screening ([facility] 139) Fall risk assessment: 1 Fall in past year Depression/Bipolar (159/160/161/177) PHQ-9: Total score: 0 Coding Level of Care Code Medicare First (G0438) Diagnoses Encounter for Medicare annual wellness exam Z00.00 Additional Codes DENISE-7 Assessment Billing - DENISE-7 Assessment Tool: DENISE-7 Assessment 96749 ([id number]) Time Spent (min) 36 Advance Care Planning Did not discuss due to Cultural/Spiritual beliefs: Yes
== END 2023-04-27 08:17 | disposition home or self-care (01) ==
PROVIDERS: Visit Provider Internal Medicine
DX: Z00.00 Encounter for general adult medical examination without abnormal findings (principal)
CPT/HCPCS: G0438

== ENCOUNTER 2023-05-27 06:52 | Outpatient (REF) | payer MEDICARE, SELFPAY ==
[2023-05-27 07:09] LABS: MANUAL DIFF FLAG NO
[2023-05-27 07:56] LABS: Basophils Percent Auto 0.5 % (0-2); Eosinophils Absolute Auto 0.4 X10*3/uL (0.0-0.4); Eosinophils Percent Auto 6.6 % (0-4); Hemoglobin 14.7 g/dl (14.0-18.0); Imm Gran Abs Auto 0.02 X10*3/uL (0.00-0.03); Imm Gran Pct Auto 0.4 % (0.0-0.4); Lymphocytes Absolute Auto 1.8 X10*3/uL (1.2-4.9); Lymphocytes Percent Auto 31.7 % (20-40); Mean Corpuscular HGB Conc 34.2 g/dl (31.0-36.0); Mean Corpuscular Hemoglobin 31.7 pg (27.0-33.0); Mean Corpuscular Volume 92.7 fL (80.0-98.0); Mean Platelet Volume 8.6 fL (9.4-12.4); Monocytes Absolute Auto 0.4 X10*3/uL (0.1-1.2); Monocytes Percent Auto 7.2 % (2-11); Neutrophils Percent Auto 53.6 % (45-73); Platelet Count 267 X10*3/uL (160-400); Red Blood Count 4.64 X10*6/uL (4.60-5.80); Red Cell Distribution Width 12.6 % (11.0-16.0); White Blood Count 5.6 X10*3/uL (4.8-10.8)
[2023-05-27 08:30] LABS: Alanine Aminotransferase 19 U/L (0-40); Albumin Level 3.9 g/dL (3.5-5.0); Alkaline Phosphatase 75 U/L (39-117); Anion Gap 10 (12-20); Aspartate Amino Transferase 19 U/L (5-37); Bilirubin Total 1.2 mg/dL (0.0-1.0); Blood Urea Nitrogen 12 mg/dL (9-16); Calcium 8.6 mg/dL (8.4-10.2); Carbon Dioxide 28 mmol/L (22-29); Chloride 103 mmol/L (96-108); Cholesterol 197 mg/dL (<200); Estimated Glomerular Filt Rate > 60; Glucose Fasting 88 mg/dL (60-99); HDL Cholesterol 45 mg/dL (>40); LDL Cholesterol Calculated 132 mg/dL (<100); Potassium 3.8 mmol/L (3.3-5.1); Sodium 137 mmol/L (135-145); Total Protein 7.2 g/dL (6.5-8.0); Triglycerides 102 mg/dL (<150)
[2023-05-27 08:35] LABS: Free T4 (Free Thyroxine) 1.04 ng/dL (0.71-1.85)
[2023-05-30 07:43] LABS: TS Negative Control Passed; TS Panel A 0; TS Panel B 0; TS Positive Control Passed; TSpotTB Negative (Negative)
== END 2023-05-27 06:53 | disposition home or self-care (01) ==
LOC: HO.LAB 06:52
PROVIDERS: PCP Internal Medicine; Visit Provider Internal Medicine
DX: R63.4 Abnormal weight loss (principal); E78.5 Hyperlipidemia, unspecified; Z11.1 Encounter for screening for respiratory tuberculosis
CPT/HCPCS: 36415; 80053; 80061; 84439; 84443; 85025; 86481

== ENCOUNTER → 2023-11-18 13:17 | Outpatient (RCR) | payer OTHER, SELFPAY ==
[2020-07-03 09:53] VITALS: BP 128/73; PULSE 70; RESP 12; TEMP 36.4; O2SAT 96; BMI 21.9
--- NOTE | 2020-07-03 10:09 | PM.HEMONCCN ---
Subjective - Subjective Chief complaint: High eosinophils Patient: new to practice Consult date: 07/03/20 Primary Care Provider: Neelam Mcgee MD HPI - Consult Narrative Reason for consult: Abnormal blood test Narrative: Dylan Kirk is a 65 year old male referred for evaluation of elevated eosinophil percentage on routine blood test. Patient notice that percentage of eosinophils on CBC in patient portal was reported as 7%, elevated. He read about it on [employer] and he thought he may have leukemia as he is constantly tired. 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 He has no other complaints such as fever, chills, night sweats or unexplained weight loss. Oncology Screenings - ECOG Performance Status ECOG Performance Status: 0 PMFSH Medical History: Medical History (This Medical Record has been edited. Action required.) Coccyalgia Dyslipidemia Eosinophilia Fx sacrum/coccyx-closed Lumbar degenerative disc disease Lumbar spondylosis Neutropenia Osteoarthritis of left hip Family History: Family History (This Medical Record has been edited. Action required.) Father Pancreatic cancer Mother Stomach cancer Brother No problems noted. Sister No problems noted. Son No problems noted. Father Pancreatic cancer Mother Stomach cancer Brother No problems noted. Sister No problems noted. Son No problems noted. Surgical History: Surgical History (This Medical Record has been edited. Action required.) No pertinent past surgical history Social History: Social History (This Medical Record has been edited. Action required.) Alcohol History: Alcohol intake: never Smoking status: Never smoker Home Medications and Allergies Home Medications Medication Instructions Recorded Confirmed Type No Known Home Meds 04/17/20 04/17/20 History Allergies Allergy/AdvReac Type Severity Reaction Status Date / Time ibuprofen [IBUPROFEN] Allergy Mild STOMACH Verified 06/17/20 09:32 UPSET celecoxib [Celebrex] Allergy Unknown palpitation Verified 06/17/20 09:32 s Physical Exam Vital signs: Vital Signs Temp 97.5 F 07/03/20 09:53 Pulse 70 07/03/20 09:53 Resp 12 07/03/20 09:53 BP 128/73 07/03/20 09:53 Pulse Ox 96 07/03/20 09:53 Intake & Output 07/02/20 07/03/20 07/03/20 18:59 06:59 18:59 Other: Weight 63.6 kg Weight in Grams 16194 Weight 63.6 kg - Constitutional Present: no acute distress, average body habitus - Routine HEENT Exam Head: Present: normal inspection Eye: Present: normal appearance - Routine Respiratory Exam Absent: accessory muscle use Hem/Onc Consult Result - Labs Labs: Laboratory Tests 05/27/20 08:14 WBC 6.2 RBC 4.71 Hgb 15.1 Hct 44.8 MCV 95.1 MCH 32.1 MCHC 33.7 RDW 12.4 Eos % (Auto) 7.1 H Eos # (Auto) 0.4 Assessment and Plan (1) Abnormal CBC Status: Chronic 1. This is a 65-year-old male referred for evaluation of elevated eosinophil percentage. 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 He has no constitutional symptoms. His total WBC count is normal. He has no anemia or abnormal platelet counts. His absolute eosinophil count is normal. Although his eosinophil percentage is mildly elevated at 7%, his absolute eosinophils count is below 500 on multiple occasions. I explained to patient that these are normal cells and can be on occasionally elevated which could be related to mild nonspecific allergies, infection or medication use. No further hematological workup is necessary at this time. I thank you for this consultation.
--- NOTE | 2020-07-03 10:36 | MHC.HEMONCMA ---
Patient came in for a consult today for high eosiniphils. Clinical summary was reviewed and updated. Patient did not have labs, per DR Barnhart he does not need further work up and does not need a follow up appt.
== END | disposition home or self-care (01) ==
LOC: HO.ONC 07-03 09:45
PROVIDERS: PCP Internal Medicine; Referring Provider Internal Medicine; Visit Provider Internal Medicine
DX: R79.89 Other specified abnormal findings of blood chemistry (principal)
CPT/HCPCS: 99202

== ENCOUNTER 2024-05-19 07:12 | Outpatient (REF) | payer MEDICARE, SELFPAY ==
--- OUTSIDE RECORDS SUMMARY | 2024-05-19 07:16 | XMS_ITS | Encounter Summary ---
Author Organization [employer] Address [address] [place] [address] 7 [place] [address] Care Team Providers Care Dust Collector Ore Crushing Name Role Phone Unavailable Primary Care Provider Unavailabl e Encounter Details Date Type Department Care Team (Latest Contact Info) Description 02/07/2019 Abstract [facility] CONVERSIONS Dental, Provider, DDS Social History Tobacco Use Types Packs/Day Years Used Date Smoking Tobacco: Never Assessed Sex and Gender Information Value Date Recorded Sex Assigned at Male 01/19/2022 10:17 AM EDT Legal Sex Male 10:17 AM EDT Gender Identity Male 01/19/2022 10:17 AM EDT Sexual Orientation Straight 01/19/2022 10 :17 AM EDT documented as of this encounter Plan of Treatment Not on file documented as of this encounter Visit Diagnoses Not on filedocumented in this encounter
--- OUTSIDE RECORDS SUMMARY | 2024-05-19 07:16 | XMS_ITS | Encounter Summary ---
Author Organization [employer] Address [address] [place] [address] [address] [place] [address] Care Team Providers Care Manager Marketing Name Role Phone Unavailable Primary Care Provider Unavailabl e Encounter Details Date Type Department Care Team (Latest Contact Info) Description 01/29/2021 Abstract [facility] CONVERSIONS Dental, Provider, DDS Social History [...]
--- OUTSIDE RECORDS SUMMARY | 2024-05-19 07:16 | XMS_ITS | Clinical Summary ---
Author Organization [employer] Address [address] [place] [address] [address] [place] [address] Care Team Providers Care Business Excellence Leader Name Role Phone Unavailable Primary Care Provider Unavailabl e Allergies Active Allergy Reactions Criticality Noted Date Comments Ibuprofen Swelling Medications No known medications Active Problems Problem Noted Date Diagnosed Date Secondary dental caries 07/12/2023 Dental plaque 05/25/2023 Missing teeth, acquired 05/25/2023 Localized gingival recession, minimal 05/25/2023 Tipped teeth 05/25/2023 Social History Tobacco Use Types Packs/Day Years Used Date Smoking Tobacco: Never Passive Smoke Exposure: Never Smokeless Tobacco: Never Tobacco Cessation:Counseling Given: Not Answered Alcohol Use Standard Drinks/Week Comments Defer 0 (1 standard drink = 0.6 oz pur e alcohol) Sex and Gender Information Value Date Recorded Sex Assigned at Male 01/19/2022 10:17 AM EDT Legal Sex Male 10:17 AM EDT Gender Identity Male 01/19/2022 10:17 AM EDT Sexual Orientation Straight 01/19/2022 10 :17 AM EDT Last Filed Vital Signs Vital Sign Reading Time Taken Comments Blood Pressure 128/76 07/12/2023 2:57 PM EDT Pulse - - Temperature - - Respiratory Rate - - Oxygen Saturation - - Inhaled Oxygen Concentration - - Weight - - Height - - Body Mass Index - - Plan of Treatment Health Maintenance Due Date Last Done Comments Anal Pap 1956 CT Colonography 1956 Colonoscopy 1956 Colorectal Cancer Screening 1956 Depression Screening 1956 FIT DNA/Cologuard 1956 FIT 1956 FOBT 1956 Lipid Panel 1956 SDOH Screening 1956 Sigmoidoscopy 1956 Alcohol/Substance Use Screening 1968 Hepatitis C Screening 1974 Hepatitis A Vaccines (1 of 2 - Risk 2-dose series) 06/18/1975 Pneumococcal Vaccine: 50+ Years (1 of 1 - PCV) 2006 Zoster Vaccines (1 of 2) 2006 DTaP/Tdap/Td Vaccines (1 - Tdap) 01/23/2012 01/22/2012 Hepatitis B Vaccines (1 of 3 - Risk 3-dose series) 2016 COVID-19 Vaccine (1 - season) 2023 Influenza Vaccine (#1) 2023 Dental Oral Exam 11/26/2023 05/25/2023, , 09/28/2013, Additional history exists Dental Prophylaxis 11/26/2023 05/25/2023, 1 03/31/2020, 02/07/2019, Additional history exists Dental X-Ray: Bitewings 05/25/2024 05/25/19 24, 01/29/2021, 01/03/2019, Additional history exists Tobacco Screening 07/11/2024 07/12/2023 Dental X-Ray: Full Mouth 05/25/2026 05/25/2023, 12/20 RSV Patients and Patients Aged 60 years or older (1 - 1-dose 75+ series) 06/18/2031 HIB Vaccines Aged Out No longer eligi ble based on patient's age to complete this topic HPV Vaccines Aged Out No longer eligi ble based on patient's age to complete this topic IPV Vaccines Aged Out No longer eligi ble based on patient's age to complete this topic Meningococcal Vaccine Aged Out No evens onel eligible based on patient's age to complete this topic RSV under 20 months Aged Out No longe r eligible based on patient's age to complete this topic Rotavirus Vaccines Aged Out No longer eligible based on patient's age to complete this topic Procedures Procedure Name Priority Date/Time Associated Diagnosis Comments PROPHYLAXIS - ADULT Routine 05/25/2023 8 :00 AM EST Dental plaque INTRAORAL - COMPLETE SERIES OF RADIOGRAPHIC IMAGES Routine 05/25/2023 8:00 AM EST Dental plaque Missing teeth, acquired Localized gingival recession, minimal Tipped teeth PERIODIC ORAL EVALUATION - ESTABLISHED PATIENT Routine 05/25/2023 8:00 AM EST from Last 3 Months or Most Recently Relevant to Health Maintenance Insurance [facility]
[2024-05-19 09:03] LABS: Alanine Aminotransferase 25 U/L (0-40); Albumin Level 3.8 g/dL (3.5-5.0); Alkaline Phosphatase 75 U/L (39-117); Anion Gap 10 (12-20); Aspartate Amino Transferase 28 U/L (5-37); Bilirubin Total 1.1 mg/dL (0.0-1.0); Blood Urea Nitrogen 15 mg/dL (9-16); Calcium 8.5 mg/dL (8.4-10.2); Carbon Dioxide 27 mmol/L (22-29); Chloride 106 mmol/L (96-108); Cholesterol 185 mg/dL (<200); Estimated Glomerular Filt Rate > 60; Glucose Fasting 98 mg/dL (60-99); HDL Cholesterol 49 mg/dL (>40); LDL Cholesterol Calculated 117 mg/dL (<100); Potassium 4.1 mmol/L (3.3-5.1); Sodium 139 mmol/L (135-145); Thyroid Stimulating Hormone 2.13 uIU/mL (0.32-4.0); Total Protein 7.4 g/dL (6.5-8.0); Triglycerides 95 mg/dL (<150)
[2024-05-19 09:09] LABS: Folate 8.2 ng/mL (> or = 4.0); Vitamin B12 685 pg/mL (200-900)
== END 2024-05-19 07:13 | disposition home or self-care (01) ==
LOC: HO.LAB 07:12
PROVIDERS: PCP Internal Medicine; Visit Provider Internal Medicine
DX: E78.00 Pure hypercholesterolemia, unspecified (principal); E53.8 Deficiency of other specified B group vitamins; R63.4 Abnormal weight loss; E78.5 Hyperlipidemia, unspecified; E55.9 Vitamin D deficiency, unspecified
CPT/HCPCS: 36415; 80053; 80061; 82306; 82607; 82746; 84443

== ENCOUNTER 2024-10-01 21:37 | Inpatient (IN) | payer MEDICARE, OTHER, SELFPAY ==
--- NOTE | ~2024-10-01 | CT_ITS ---
CLINICAL HISTORY: Right lower quadrant pain?appy CT abdomen and pelvis with contrast Comparison: None provided Findings: Mild dependent changes in the lungs. Circumscribed hepatic hypodensity likely cyst. Gallbladder, pancreas, spleen and adrenal glands are within normal limits. Kidneys enhance symmetrically and are non hydronephrotic. No urolithiasis. No bowel obstruction, pneumoperitoneum, or pneumatosis. The appendix is enlarged up to 1.2 cm diameter, fluid-filled and there significant periappendiceal fat stranding or inflammatory change. Urinary bladder and pelvic structures are within normal limits. No acute fracture. IMPRESSION: Acute appendicitis. This document has been electronically signed by: Douglas Crespo MD, PHD on 10/01/2024 23:12:10
[2024-10-01 21:41] VITALS: BP 114/64; PULSE 76; RESP 16; TEMP 36.6; O2SAT 95; BMI 19.8
[2024-10-01 22:01] LABS: MANUAL DIFF FLAG NO
[2024-10-01 22:03] LABS: Hematocrit 36.7 % (42.0-52.0); Hemoglobin 12.8 g/dl (14.0-18.0); Imm Gran Abs Auto 0.04 X10*3/uL (0.00-0.03); Imm Gran Pct Auto 0.4 % (0.0-0.4); Lymphocytes Absolute Auto 1.7 X10*3/uL (1.2-4.9); Mean Corpuscular HGB Conc 34.9 g/dl (31.0-36.0); Mean Corpuscular Hemoglobin 32.3 pg (27.0-33.0); Mean Corpuscular Volume 92.7 fL (80.0-98.0); NRBC Abs Auto 0.000 X10*3/uL (0.0-0.012); NRBC Pct Auto 0.0 /100WBC (0.0-0.2); Platelet Count 303 X10*3/uL (160-400); Red Blood Count 3.96 X10*6/uL (4.60-5.80); White Blood Count 10.4 X10*3/uL (4.8-10.8)
--- OUTSIDE RECORDS SUMMARY | 2024-10-01 22:13 | XMS_ITS | Clinical Summary ---
Author Organization [employer] Address [address] [place] [address] [address] [place] [address] Care Team Providers Care Senior Auditor Name Role Phone Unavailable Primary Care Provider [...] 2016 COVID-19 Vaccine (1 - season) 2023 Dental Oral Exam 11/26/2023 05/25/2023, , 09/28/2013, Additional history exists Dental Prophylaxis 11/26/2023 05/25/2023, 1 03/31/2020, 02/07/2019, Additional history exists Dental X-Ray: Bitewings 05/25/2024 05/25/19 24, 01/29/2021, 01/03/2019, Additional history exists Tobacco Screening 07/11/2024 07/12/2023 Influenza Vaccine (#1) 2024 Dental X-Ray: Full Mouth 05/25/2026 05/25/2023, 12/20 [...] patient's age to complete this topic Meningococcal B Vaccine Aged Out No l onger eligible based on patient's age to complete [...] Recently Relevant to Health Maintenance [facility] (MEDICAID)
[2024-10-01 22:16] LABS: Alanine Aminotransferase 48 U/L (0-40); Albumin Level 3.7 g/dL (3.5-5.0); Alkaline Phosphatase 155 U/L (39-117); Anion Gap 13 (12-20); Aspartate Amino Transferase 49 U/L (5-37); Blood Urea Nitrogen 21 mg/dL (9-16); Calcium 8.4 mg/dL (8.4-10.2); Carbon Dioxide 23 mmol/L (22-29); Chloride 104 mmol/L (96-108); Creatinine Clr Calc Pharmacy 62.3; Estimated Glomerular Filt Rate > 60; Lipase 32 U/L (8-78); Potassium 3.9 mmol/L (3.3-5.1); Sodium 136 mmol/L (135-145); Total Protein 7.6 g/dL (6.5-8.0)
[2024-10-01] MEDS: iohexoL 350 MG/ML 100 ML INFUS..BTL 85 ML IV (22:41)
--- NOTE | 2024-10-01 23:07 | ED.ABDPAIN ---
HPI - Abdominal Pain General Chief Complaint: Abdominal Pain Stated Complaint: ?Appendicitis, pain rising up abd Time Seen by Provider: 10/01/24 22:07 Source: patient Mode of arrival: ambulatory Limitations: no limitations History of Present Illness ED Provider: HPI narrative: Patient with history hyperlipidemia no known chronic abdominal problems no history of kidney stone no urinary complaints does not constipation since yesterday last bowel movement was 2 days ago comes here for the right lower quadrant pain started yesterday in a.m. patient has nausea and vomiting 2 days ago yesterday just nausea no fever no chills pain got worse today since known gets worse on ambulation did not eat much tried to eat small amount of food at noon today Related Data Previous Rx's ?Medication ?Instructions ?Recorded cholecalciferol (vitamin D3) 50 50 mcg PO DAILY 90 days #90 caps 05/19/24 mcg (2,000 unit) capsule Allergies Allergy/AdvReac Type Severity Reaction Status Date / Time celecoxib (Celebrex) Allergy Intermediate palpitation Verified 10/01/24 21:49 s ibuprofen (IBUPROFEN) Allergy Mild STOMACH Verified 10/01/24 21:49 UPSET Review of Systems Review of Systems Yes all other systems are reviewed and are negative PMF Past Medical History Medical History Acute appendicitis Physical exam Impaired glucose tolerance Spider bite Lumbar degenerative disc disease Osteoarthritis of left hip Fx sacrum/coccyx-closed Eosinophilia Dyslipidemia Neutropenia Lumbar spondylosis Coccyalgia Surgical History No pertinent past surgical history Family History Family History Father Pancreatic cancer Mother Stomach cancer Brother No problems noted. Sister No problems noted. Son No problems noted. Father Pancreatic cancer Mother Stomach cancer Brother No problems noted. Sister No problems noted. Son No problems noted. Social History Social History Housing: House Alcohol intake: former Patient Tobacco Use Status: Never used Tobacco Smoked in Last 30 Days: No e-Cigarette/Vaping Use: Never Used Second Hand Smoke Exposure: Yes Use of substances other than those prescribed or required for medical reasons: No Advance Directives: No Advance Directives Information Provided: Yes Do you have a plan to hurt others: No Plan service: No Current occupational status: employed Cognitive needs: No Hearing needs: No Vision needs: No Physical Exam ED Vital Signs: Vital Signs - 24 hr 10/01/24 21:41 Temperature 97.8 F Pulse Rate 76 Respiratory Rate 16 Blood Pressure 114/64 Pulse Oximetry 95 Oxygen Delivery Method Room Air BMI result Body Mass Index 19.8 Appearance: Alert. Oriented X3. No acute distress. Eyes: No pallor or icterus ENT: Pharynx normal. Oral Mucosa moist Neck: Normal inspection. Neck supple. CVS: Normal heart rate and rhythm. Pulses normal. Respiratory: No respiratory distress. Equal air entry bilateral, no wheezing/rales/rhonchi Abdomen: Soft and tenderness right lower quadrant with guarding no rebound tenderness Bowel sounds are present, no mass palpable, no CVA tenderness Skin: Skin warm and dry. Normal skin color. Normal skin turgor. Extremities: No lower extremity edema. No calf tenderness Neuro: Oriented X 3. No motor deficit. No sensory deficit.No cerebellar signs , cranial nerves II-XII intact Medical Decision Making Medical Decision Making [facility] Narrative: Patient has acute onset of right lower quadrant pain with guarding clinically appendicitis, patient's WBC counts were normal CT scan showed inflamed appendix without any perforation or fluid collection. Case discussed Dr. Holman surgeon will take the patient for surgery in a.m. Differential Diagnosis Differential Diagnoses: The differential diagnosis associated with the presentation includes Constipation/appendicitis glass cholecystitis/kidney stone/UTI Admission/Observation Consideration of admission/observation: Escalation of care including admission/observation considered Consult Healthcare Provider Management of the patient was discussed with: Patient Sitter Dr. Holman surgeon Lab Data [facility] Lab Attestation statement: I reviewed the patient's lab results. 10/01/24 21:58 10/01/24 21:58 Labs: Lab Results 10/01/24 Range/Units 21:58 WBC 10.4 (4.8-10.8) X10*3/uL RBC 3.96 L (4.60-5.80) X10*6/uL Hgb 12.8 L (14.0-18.0) g/dl Hct 36.7 L (42.0-52.0) % MCV 92.7 (80.0-98.0) fL MCH 32.3 (27.0-33.0) pg MCHC 34.9 (31.0-36.0) g/dl RDW 12.6 (11.0-16.0) % Plt Count 303 (160-400) X10*3/uL MPV 7.7 L (9.4-12.4) fL Immature Gran % (Auto) 0.4 (0.0-0.4) % Neut % (Auto) 74.7 H (45-73) % Lymph % (Auto) 16.7 L (20-40) % [place] % (Auto) 6.5 (2-11) % Eos % (Auto) 1.3 (0-4) % Baso % (Auto) 0.4 (0-2) % Lymph # (Auto) 1.7 (1.2-4.9) X10*3/uL [place] # (Auto) 0.7 (0.1-1.2) X10*3/uL Eos # (Auto) 0.1 (0.0-0.4) X10*3/uL Baso # (Auto) 0.0 (0.0-0.2) X10*3/uL Abs Immat Gran (auto) 0.04 H (0.00-0.03) X10*3/uL Absolute Neuts (auto) 7.8 (2.0-8.3) x10*3/uL Absolute Nucleated RBC 0.000 (0.0-0.012) X10*3/uL Nucleated RBC % (auto) 0.0 (0.0-0.2) /100WBC Sodium 136 (135-145) mmol/L Potassium 3.9 (3.3-5.1) mmol/L Chloride 104 (96-108) mmol/L Carbon Dioxide 23 (22-29) mmol/L Anion Gap 13 (12-20) BUN 21 H (9-16) mg/dL Creatinine 0.92 (0.5-1.4) mg/dL Estim Creat Clear Calc 62.3 Estimated GFR > 60 Random Glucose 99 (60-115) mg/dL Calcium 8.4 (8.4-10.2) mg/dL Total Bilirubin 0.7 (0.0-1.0) mg/dL AST 49 H (5-37) U/L ALT 48 H (0-40) U/L Alkaline Phosphatase 155 H (39-117) U/L Total Protein 7.6 (6.5-8.0) g/dL Albumin 3.7 (3.5-5.0) g/dL Lipase 32 (8-78) U/L Independent Interpretation I performed an independent interpretation of an: EKG and CT Scan Interpretation: Normal sinus rhythm with ventricular rate of 67 beats per minute left bundle-branch block no acute STT wave changes no acute ischemia Radiology Impression Discussion of test interpretation with radiology: I have reviewed the radiologist's reading. Radiologist Impression: [address] [address] [address] Scan Report Signed with Addenda Patient: Jake Cat MR#: [id number] : 1955 Acct:[id number] Age/Sex: 69 / M ADM Date: 10/01/24 Loc: .ED Attending Dr: Ordering Physician: Hakeem Ramires MD Date of Service: 10/01/24 Procedure(s): CT abdomen pelvis w IV con Accession Number(s): [id number] cc: Neelam Dyer MD; Hakeem Ramires MD~ Report Number: [id number]: Total DLP = 335.00 mGy-cm ADDENDUMThis document has been electronically signed by: Douglas Crespo MD, PHD on 10/01/2024 23:12:10 ADDENDUM: This report was discussed with Dr. Hakeem Ramires on Oct 01, 2024 23:14:00 EDT. This document has been electronically signed by: Adrienne Williamson on 10/01/2024 23:15:08 Addendum Dictated By: Douglas Crespo MD Addendum Signed By: <Electronically signed by Douglas Crespo MD in [place]> 10/01/242314 Addendum Cosigned By: DD/ TD/TT: 10/01/24 CLINICAL HISTORY: Right lower quadrant pain?appy CT abdomen and pelvis with contrast Comparison: None provided Findings: Mild dependent changes in the lungs. Circumscribed hepatic hypodensity likely cyst. Gallbladder, pancreas, spleen and adrenal glands are within normal limits. Kidneys enhance symmetrically and are non hydronephrotic. No urolithiasis. No bowel obstruction, pneumoperitoneum, or pneumatosis. The appendix is enlarged up to 1.2 cm diameter, fluid-filled and there significant periappendiceal fat stranding or inflammatory change. Urinary bladder and pelvic structures are within normal limits. No acute fracture. IMPRESSION: Acute appendicitis. This document has been electronically signed by: Douglas Crespo MD, PHD on 10/01/2024 23:12:10 Dictated By: Douglas Crespo MD Signed By: <Electronically signed by Douglas Crespo MD in [place]> 10/01/24 [id number] Medications Administered Generic Name Dose Route Start Last Admin Trade Name Freq PRN Reason Stop Dose Admin Lactated Ringer's 1,000 mls @ 80 mls/hr 10/01/24 23:30 10/02/24 00:15 Lr IVCONT 80 mls/hr .[id number] MARYANA Administration Sodium Chloride 3 ml 10/02/24 00:00 10/02/24 00:03 0.9 % Sodium Chloride Flush 3 Ml Syringe IVFLUSH Not Given QSHIFT MARYANA Discontinued Medications Generic Name Dose Route Start Last Admin Trade Name Freq PRN Reason Stop Dose Admin Sodium Chloride 1,000 mls @ 999 mls/hr 10/01/24 22:28 10/02/24 00:23 Ns IV 10/01/24 23:28 Infused .Q1H1M ONE Infusion Piperacillin Sod/Tazobactam 50 mls @ 100 mls/hr 10/01/24 23:22 10/02/24 00:11 Sod 3.375 gm/ Sodium Chloride IV 10/01/24 23:51 Infused ONCE ONE Infusion Iohexol 85 ml 10/01/24 22:41 10/01/24 22:41 Iohexol 350 Mg/Ml 100 Ml Infus..Btl IV 10/01/24 22:42 85 ml ONCE ONE Administration Morphine Sulfate 4 mg 10/01/24 23:23 10/01/24 23:40 Morphine Sulfate 4 Mg/Ml Cartridge IVPUSH 10/01/24 23:24 Not Given ONCE ONE Protocol Ondansetron HCl 4 mg 10/01/24 23:23 10/01/24 23:40 Ondansetron Hcl 4 Mg/2 Ml Vial IVPUSH 10/01/24 23:24 Not Given ONCE ONE Discharge Plan Discharge Clinical Impression: Acute appendicitis Patient Disposition: Admitted As Inpatient
--- NOTE | 2024-10-01 23:22 | ECG_ITS ---
Test Reason : PREOP Blood Pressure : */* mmHG Vent. Rate : 67 BPM Atrial Rate : 67 BPM P-R Int : 184 ms QRS Dur : 150 ms QT Int : 438 ms P-R-T Axes : 55 -28 40 degrees QTcB Int : 462 ms Normal sinus rhythm Left bundle branch block Abnormal ECG When compared with ECG of 18-May-2021 11:05, Left bundle branch block is now Present Referred By: Hakeem Ramires Electronically Signed By: ADRIANNE RAMOS
[2024-10-01 23:51] LABS: Appearance Urine Clear; Glucose Urine UA Negative (Negative); PH 6.5 (5.0-9.0); Specific Gravity - Urine >= 1.030 (1.005-1.025); UMIC TRIGGER UACC YES
[2024-10-02] VITALS (16 sets, daily range): BP systolic 101–133; BP diastolic 55–80; PULSE 56–70; RESP 16–20; TEMP 36.1–36.8; O2SAT 96–100
[2024-10-02] MEDS: Lactated Ringers 1,000 ML 80 ML IVCONT (00:15)
--- NOTE | 2024-10-02 00:41 | PM.HPGS ---
History of Present Illness History of Present Illness Date of Service: 10/02/24 Chief complaint: acute appendicitis Narrative: Jake Kirk is a 69 year old male with the ER for abdominal pain. He says that this started yesterday morning. He describes this has mostly on the lower abdomen to the right. He says that this persisted although this has been of low intensity. He also says that about 2 days ago, he had 3 episodes of vomiting and was unable to tolerate oral intake that time. He did not have pain yet then. In view of the persistence of his pain starting from yesterday, he came to the emergency room tonight. He says currently he is comfortable. He has minimal pain Review of Systems Constitutional: Constitutional: Denies chills and Denies fever(s) Cardiovascular: Cardiovascular: Denies chest pain, Denies dyspnea and Denies dyspnea on exertion Respiratory: Respiratory: Denies cough, Denies dyspnea and Denies dyspnea on exertion Gastrointestinal: Gastrointestinal: Denies hematochezia and Denies change in bowel habits Genitourinary: Genitourinary: Denies hematuria and Denies difficulty urinating Musculoskeletal: Musculoskeletal: Denies back pain and Denies limited range of motion Neurologic: Denies focal weakness and Denies convulsions Psychiatric: Psychiatric: Denies depression and Denies mood swings PMFSH Past Medical History Medical History (Updated 10/02/24 @ 08:59 by Stephany Dumont RN) Fatty liver Hematuria Acute appendicitis Physical exam Impaired glucose tolerance Spider bite Lumbar degenerative disc disease Osteoarthritis of left hip Fx sacrum/coccyx-closed Eosinophilia Dyslipidemia Neutropenia Lumbar spondylosis Coccyalgia Family History Family History Father Pancreatic cancer Mother Stomach cancer Brother No problems noted. Sister No problems noted. Son No problems noted. Father Pancreatic cancer Mother Stomach cancer Brother No problems noted. Sister No problems noted. Son No problems noted. Surgical History Surgical History (Updated 10/02/24 @ 08:58 by Stephany Dumont RN) H/O colonoscopy No pertinent past surgical history Social History Social History Housing: House Alcohol intake: former Patient Tobacco Use Status: Never used Tobacco e-Cigarette/Vaping Use: Never Used Second Hand Smoke Exposure: Yes service: No Current occupational status: employed Cognitive needs: No Hearing needs: No Vision needs: No Meds Allergies Allergy/AdvReac Type Severity Reaction Status Date / Time celecoxib (Celebrex) Allergy Intermediate palpitation Verified 10/01/24 21:49 s ibuprofen (IBUPROFEN) Allergy Mild STOMACH Verified 10/01/24 21:49 UPSET Active Medications: Current Medications Acetaminophen (Acetaminophen 325 Mg Tablet) 650 mg PO Q6H PRN PRN Reason: Pain, Mild 1-3,fever,headache Calcium Carbonate (Calcium Carbonate 750 Mg Tab.Chew) 750 mg PO Q4H PRN PRN Reason: Heartburn Lactated Ringer's (Lr) 1,000 mls @ 80 mls/hr IVCONT .[id number] [facility] Last Admin: 10/02/24 00:15 Dose: 80 mls/hr Piperacillin Sod/Tazobactam (Sod 3.375 gm/ Sodium Chloride) 50 mls @ 100 mls/hr IV Q6H [facility] Morphine Sulfate (Morphine Sulfate 2 Mg/Ml Cartridge) 2 mg IVPUSH Q4H PRN; Protocol PRN Reason: Pain, Severe (Pain Scale 7-10) Ondansetron HCl (Ondansetron Hcl 4 Mg/2 Ml Vial) 4 mg IVPUSH Q8H PRN PRN Reason: Nausea and Vomiting Sodium Chloride (0.9 % Sodium Chloride Flush 3 Ml Syringe) 3 ml IVFLUSH QSHIFT [facility] Last Admin: 10/02/24 00:03 Dose: Not Given Physical Exam Vital Signs: Vital Signs: Last Vital Signs Temp 98.3 F 10/02/24 00:17 Pulse 70 10/02/24 00:17 Resp 20 10/02/24 00:17 BP 101/68 10/02/24 00:17 Pulse Ox 97 10/02/24 00:17 O2 Del Method Room Air 10/02/24 00:17 BMI result Body Mass Index 19.8 Const: Other: Looks well General: comfortable and no acute distress Orientation/consciousness: patient oriented x3 Neck: Neck: Yes no lymphadenopathy Resp: Auscultation: clear to auscultation bilaterally Cardio: Rhythm: regular rhythm GI: Other: Some tenderness right lower quadrant only on deep palpation, with no guarding or rebound Palpation (GI): Soft to palpation, Tenderness to palpation present (GI) and no guarding Neuro: General: patient oriented x3 Results Results Labs: Short CBC 10/01/24 Range/Units 21:58 WBC 10.4 (4.8-10.8) X10*3/uL Hgb 12.8 L (14.0-18.0) g/dl Hct 36.7 L (42.0-52.0) % Plt Count 303 (160-400) X10*3/uL BMP 10/01/24 21:58 Sodium 136 Potassium 3.9 Chloride 104 Carbon Dioxide 23 BUN 21 H Creatinine 0.92 Calcium 8.4 Liver Function 10/01/24 Range/Units 21:58 Total Bilirubin 0.7 (0.0-1.0) mg/dL AST 49 H (5-37) U/L ALT 48 H (0-40) U/L Alkaline Phosphatase 155 H (39-117) U/L Albumin 3.7 (3.5-5.0) g/dL Urine 10/01/24 Range/Units 23:46 Urine Color Yellow Urine Appearance Clear Urine pH 6.5 (5.0-9.0) Ur Specific [place] >= 1.030 H (1.005-1.025) Urine Protein Negative (Neg-Trace) mg/dL Urine Glucose (UA) Negative (Negative) mg/dL Abdomen CT scan report/results: report reviewed and image reviewed CT scan - pelvis: report reviewed and image reviewed Additional studies: The appendix is enlarged up to 1.2 cm diameter, fluid-filled and there significant periappendiceal fat stranding or inflammatory change. Urinary bladder and pelvic structures are within normal limits. No acute fracture. IMPRESSION: Acute appendicitis. Assessment and Plan (1) Acute appendicitis: Status: Acute 69-year-old male, with right lower quadrant pain since yesterday. I have reviewed his CAT scan and this shows a dilated appendix with periappendiceal stranding and inflammatory changes consistent with the acute appendicitis I explained to him the option of proceeding with appendectomy. I discussed the technique of laparoscopic appendectomy and possible open appendectomy. I reviewed the risks including but not limited to bleeding, infections, bowel injury, injury to other organs including the urinary tract, staple line leak, as well as the benefits and alternatives. I also reviewed with him what to expect postoperatively He understands and says he would like to proceed with the appendectomy He will be added on to OR schedule later. Quality Stroke Does the patient have a stroke diagnosis?: No VTE Prior VTE?: No VTE Risk Level:: Medical - moderate - high VTE Device Contraindication: N/A - Device Ordered VTE Drug Contraindication: N/A - Med Ordered Procedures Date of Service Date of Service: 10/02/24
--- NOTE | 2024-10-02 07:59 | PM.PNGS ---
Subjective Subjective Date of Service: 10/02/24 <Munira Mclain PA-C - Last Filed: 10/02/24 08:01> 10/02/24 <Clifford Holman MD - Last Filed: 10/02/24 08:22> Interval history: Has continued RLQ pain, not significantly improved since admission. <Munira Mclain PA-C - Last Filed: 10/02/24 08:01> Physical Exam Vital Signs: Vital Signs: Last Vital Signs Temp 98.3 F 10/02/24 00:17 Pulse 58 10/02/24 02:11 Resp 16 10/02/24 06:00 BP 101/68 10/02/24 00:17 Pulse Ox 97 10/02/24 02:11 O2 Del Method Room Air 10/02/24 02:11 BMI result Body Mass Index 19.8 <CADEN Matias Last Filed: 10/02/24 08:01> Const: General: comfortable, no acute distress and alert <Munira Mclain PA-C - Last Filed: 10/02/24 08:01> Orientation/consciousness: patient oriented x3 <Munira Mclain PA-C - Last Filed: 10/02/24 08:01> Resp: Effort & Inspection: normal respiratory effort <CADEN Matias Last Filed: 10/02/24 08:01> GI: Inspection: No distended <CADEN Matias Last Filed: 10/02/24 08:01> Palpation (GI): Soft to palpation, Tenderness to palpation present (GI) in the RLQ and at McBurney's point and no guarding <CADEN Matias Last Filed: 10/02/24 08:01> Skin: General skin exam: no rashes or lesions noted <CADEN Matias Last Filed: 10/02/24 08:01> Neuro: General: patient oriented x3 and moves all extremities <CADEN Matias Last Filed: 10/02/24 08:01> Objective Data Active Medications Acetaminophen (Acetaminophen 325 Mg Tablet) 650 mg PO Q6H PRN PRN Reason: Pain, Mild 1-3,fever,headache Calcium Carbonate (Calcium Carbonate 750 Mg Tab.Chew) 750 mg PO Q4H PRN PRN Reason: Heartburn Lactated Ringer's (Lr) 1,000 mls @ 80 mls/hr IVCONT .[id number] [facility] Last Admin: 10/02/24 00:15 Dose: 80 mls/hr Documented By: KUMAROPEWyatt Piperacillin Sod/Tazobactam (Sod 3.375 gm/ Sodium Chloride) 50 mls @ 100 mls/hr IV Q6H [facility] Last Infusion: 10/02/24 06:59 Dose: Infused Documented By: BLANCA Morphine Sulfate (Morphine Sulfate 2 Mg/Ml Cartridge) 2 mg IVPUSH Q4H PRN; Protocol PRN Reason: Pain, Severe (Pain Scale 7-10) Ondansetron HCl (Ondansetron Hcl 4 Mg/2 Ml Vial) 4 mg IVPUSH Q8H PRN PRN Reason: Nausea and Vomiting Sodium Chloride (0.9 % Sodium Chloride Flush 3 Ml Syringe) 3 ml IVFLUSH QSHIFT [facility] Last Admin: 10/02/24 07:00 Dose: Not Given Documented By: BLANCA Non-Admin Reason: IV Running <Munira Mclain PA-C - Last Filed: 10/02/24 08:01> Labs CBC & Chem 7: 10/01/24 21:58 10/01/24 21:58 <Munira Mclain PA-C - Last Filed: 10/02/24 08:01> Labs: Laboratory Results - last 24 hr 10/01/24 10/01/24 21:58 23:46 MCV 92.7 MCH 32.3 MCHC 34.9 RDW 12.6 Plt Count 303 MPV 7.7 L Immature Gran % (Auto) 0.4 Neut % (Auto) 74.7 H Lymph % (Auto) 16.7 L [place] % (Auto) 6.5 Eos % (Auto) 1.3 Baso % (Auto) 0.4 Lymph # (Auto) 1.7 [place] # (Auto) 0.7 Eos # (Auto) 0.1 Baso # (Auto) 0.0 Abs Immat Gran (auto) 0.04 H Absolute Neuts (auto) 7.8 Absolute Nucleated RBC 0.000 Nucleated RBC % (auto) 0.0 Anion Gap 13 Estim Creat Clear Calc 62.3 Estimated GFR > 60 Random Glucose 99 Calcium 8.4 Total Bilirubin 0.7 AST 49 H ALT 48 H Alkaline Phosphatase 155 H Total Protein 7.6 Albumin 3.7 Lipase 32 Urine Color Yellow Urine Appearance Clear Urine pH 6.5 Ur Specific [place] >= 1.030 H Urine Protein Negative Urine Glucose (UA) Negative Urine Ketones Trace Urine Blood Small (1+) H Urine Nitrite Negative Ur Leukocyte Esterase Negative Urine RBC 0-2 Urine WBC 0-5 Ur Squamous Epith Cells 0-2 Urine Bacteria None Seen Hyaline Casts 0-2 <Munira Mclain PA-C - Last Filed: 10/02/24 08:01> Procedures Date of Service Date of Service: 10/02/24 <Munira Mclain PA-C - Last Filed: 10/02/24 08:01> 10/02/24 <Clifford Holman MD - Last Filed: 10/02/24 08:22> Progress Note: A&P Assessment and plan (1) Acute appendicitis: Status: Acute <Munira Mclain PA-C - Last Filed: 10/02/24 08:01> Assessment and Plan: Says he feels well this morning Admits to mild right lower quadrant pain Some tenderness on examination in the right lower quadrant WBC normal I reviewed with him the technique of laparoscopic appendectomy and possible open appendectomy I explained the risks including but not limited to bleeding, infections, injury to other organs, staple line leak, blood clots, pneumonia, as well as the benefits and alternatives I explained to him what to expect postoperatively He understands and wants to proceed Seen and examined independently <Clifford Holman MD - Last Filed: 10/02/24 08:22> Assessment and Plan: Admitted with acute appendicitis. No significant improvement in RLQ pain, remains moderately tender. Cont IV abx, IVF, NPO status. Plan for laparscopic appendectomy, possible open today. Patient comfortable with plan. <CADEN Matias Last Filed: 10/02/24 08:01> Time Spent With Patient Time: Total time managing care of this patient today ____ minutes. <CADEN Matias Last Filed: 10/02/24 08:01> Quality Stroke Does the patient have a stroke diagnosis?: No <Munira Mclain PA-C - Last Filed: 10/02/24 08:01> VTE Prior VTE?: No <Munira Mclain PA-C - Last Filed: 10/02/24 08:01> VTE Risk Level:: Medical - moderate - high <Munira Mclain PA-C - Last Filed: 10/02/24 08:01> VTE Device Contraindication: N/A - Device Ordered <Munira Mclain PA-C - Last Filed: 10/02/24 08:01> VTE Drug Contraindication: N/A - Med Ordered <CADEN Matias Last Filed: 10/02/24 08:01>
--- NOTE | 2024-10-02 08:22 | HO.ANESPROP2 ---
HPI - Anesthesia Eval Consult details Narrative: juan daniel espinosa [facility] Active Problems Active Problems: All Active Problems Acute appendicitis (Acute) Encounter for Medicare annual wellness exam (Acute) Unintentional weight loss (Acute) Pure hypercholesterolemia (Acute) Right knee pain (Acute) Physical exam (Acute) Cough (Acute) Congestion of respiratory tract (Acute) Impaired glucose tolerance (Acute) Spider bite (Acute) Swelling of thumb, right (Acute) Left leg pain (Acute) Abnormal CBC (Chronic) Osteoarthritis of left hip (Acute) Lumbar degenerative disc disease (Acute) Eosinophilia (Acute) Dyslipidemia (Acute) Neutropenia (Acute) Lumbar spondylosis (Acute) Coccyalgia (Acute) Past Medical History Medical History Acute appendicitis Physical exam Impaired glucose tolerance Spider bite Lumbar degenerative disc disease Osteoarthritis of left hip Fx sacrum/coccyx-closed Eosinophilia Dyslipidemia Neutropenia Lumbar spondylosis Coccyalgia Family History Family History Father Pancreatic cancer Mother Stomach cancer Brother No problems noted. Sister No problems noted. Son No problems noted. Father Pancreatic cancer Mother Stomach cancer Brother No problems noted. Sister No problems noted. Son No problems noted. Family history of problems with anesthesia: No Surgical History Surgical History No pertinent past surgical history History of Problems with Anesthesia: No Social History Social History Housing: House Alcohol intake: former Patient Tobacco Use Status: Never used Tobacco Smoked in Last 30 Days: No e-Cigarette/Vaping Use: Never Used Second Hand Smoke Exposure: Yes Use of substances other than those prescribed or required for medical reasons: No Advance Directives: No Advance Directives Information Provided: Yes Do you have a plan to hurt others: No Plan service: No Current occupational status: employed Cognitive needs: No Hearing needs: No Vision needs: No Meds Allergies Allergy/AdvReac Type Severity Reaction Status Date / Time celecoxib (Celebrex) Allergy Intermediate palpitation Verified 10/01/24 21:49 s ibuprofen (IBUPROFEN) Allergy Mild STOMACH Verified 10/01/24 21:49 UPSET Active Medications: Current Medications Acetaminophen (Acetaminophen 325 Mg Tablet) 650 mg PO Q6H PRN PRN Reason: Pain, Mild 1-3,fever,headache Calcium Carbonate (Calcium Carbonate 750 Mg Tab.Chew) 750 mg PO Q4H PRN PRN Reason: Heartburn Lactated Ringer's (Lr) 1,000 mls @ 80 mls/hr IVCONT .[id number] [facility] Last Admin: 10/02/24 00:15 Dose: 80 mls/hr Piperacillin Sod/Tazobactam (Sod 3.375 gm/ Sodium Chloride) 50 mls @ 100 mls/hr IV Q6H [facility] Last Infusion: 10/02/24 06:59 Dose: Infused Morphine Sulfate (Morphine Sulfate 2 Mg/Ml Cartridge) 2 mg IVPUSH Q4H PRN; Protocol PRN Reason: Pain, Severe (Pain Scale 7-10) Ondansetron HCl (Ondansetron Hcl 4 Mg/2 Ml Vial) 4 mg IVPUSH Q8H PRN PRN Reason: Nausea and Vomiting Sodium Chloride (0.9 % Sodium Chloride Flush 3 Ml Syringe) 3 ml IVFLUSH QSHIFT [facility] Last Admin: 10/02/24 07:00 Dose: Not Given Exam Height,Weight and Vital Signs: Height 5 ft 7 in Weight 57.4 kg Last Vital Signs Temp 98.3 F 10/02/24 00:17 Pulse 58 10/02/24 02:11 Resp 16 10/02/24 06:00 BP 101/68 10/02/24 00:17 Pulse Ox 97 10/02/24 02:11 O2 Del Method Room Air 10/02/24 02:11 Pertinent Lab Results Pertinent Lab Results: Laboratory Tests 10/01/24 10/01/24 21:58 23:46 WBC 10.4 RBC 3.96 L Hgb 12.8 L Hct 36.7 L MCV 92.7 MCH 32.3 MCHC 34.9 RDW 12.6 Plt Count 303 MPV 7.7 L Immature Gran % (Auto) 0.4 Neut % (Auto) 74.7 H Lymph % (Auto) 16.7 L [place] % (Auto) 6.5 Eos % (Auto) 1.3 Baso % (Auto) 0.4 Lymph # (Auto) 1.7 [place] # (Auto) 0.7 Eos # (Auto) 0.1 Baso # (Auto) 0.0 Abs Immat Gran (auto) 0.04 H Absolute Neuts (auto) 7.8 Absolute Nucleated RBC 0.000 Nucleated RBC % (auto) 0.0 Sodium 136 Potassium 3.9 Chloride 104 Carbon Dioxide 23 Anion Gap 13 BUN 21 H Creatinine 0.92 Estim Creat Clear Calc 62.3 Estimated GFR > 60 Random Glucose 99 Calcium 8.4 Total Bilirubin 0.7 AST 49 H ALT 48 H Alkaline Phosphatase 155 H Total Protein 7.6 Albumin 3.7 Lipase 32 Urine Color Yellow Urine Appearance Clear Urine pH 6.5 Ur Specific [place] >= 1.030 H Urine Protein Negative Urine Glucose (UA) Negative Urine Ketones Trace Urine Blood Small (1+) H Urine Nitrite Negative Ur Leukocyte Esterase Negative Urine RBC 0-2 Urine WBC 0-5 Ur Squamous Epith Cells 0-2 Urine Bacteria None Seen Hyaline Casts 0-2 Airway Mallampati Class: II TM Dist: >3cm Neck ROM: Full Heart: rrr Lungs: cta Assessment and Plan Assessment Anesthesia Assessment: Anesthesia Plan Discussed and Chart Reviewed Final Anesthetic Review Family History of Problems with Anesthesia: No History of Problems with Anesthesia: No NPO: Yes ASA Class: II Final Preanesthetic Review: No Changes in Pt Med Stat, Meds/Allgs Chart Reviewed, Consent Obtained/Reviewed and Anes Risks/Benef Reviewed Patient Risk: Low Procedure Risk: Intermediate Anesthetic Plan Anesthetic Plan: GA Disposition: Standard PACU
--- NOTE | 2024-10-02 08:30 | PHA.MEDREC ---
Addendum entered by Ludmila Shoemaker RPh 10/02/24 08:34: MED REC REVIEWED BY [facility] Original Note: Pharmacy Consult ? Medication Reconciliation Pharmacy has completed the medication reconciliation. Spoke with pt and he confirmed he is still taking a Vitamin D3 tablet at home but states he hasn't had it in about a week.
--- NOTE | 2024-10-02 08:31 | P.CONAN_ITS ---
HPI - Anesthesia Eval Consult details Narrative: 69 yr old male for appendectomy laparoscopic, possible open. Reports first time having surgery/anesthesia. No recent illness. No chest pain/SOB. On no meds, occasional Vit D. PMFSH Active Problems Active Problems: All Active Problems Acute appendicitis (Acute) Encounter for Medicare annual wellness exam (Acute) Unintentional weight loss (Acute) Pure hypercholesterolemia (Acute) Right knee pain (Acute) Physical exam (Acute) Cough (Acute) Congestion of respiratory tract (Acute) Impaired glucose tolerance (Acute) Spider bite (Acute) Swelling of thumb, right (Acute) Left leg pain (Acute) Abnormal CBC (Chronic) Osteoarthritis of left hip (Acute) Lumbar degenerative disc disease (Acute) Eosinophilia (Acute) Dyslipidemia (Acute) Neutropenia (Acute) Lumbar spondylosis (Acute) Coccyalgia (Acute) Past Medical History Medical History (Updated 10/10/24 @ 00:02 by Delicia Barnes) Fatty liver Hematuria Acute appendicitis Physical exam Impaired glucose tolerance Spider bite Lumbar degenerative disc disease Osteoarthritis of left hip Fx sacrum/coccyx-closed Eosinophilia Dyslipidemia Neutropenia Lumbar spondylosis Coccyalgia Family History Family History Father Pancreatic cancer Mother Stomach cancer Brother No problems noted. Sister No problems noted. Son No problems noted. Father Pancreatic cancer Mother Stomach cancer Brother No problems noted. Sister No problems noted. Son No problems noted. Family history of problems with anesthesia: No Surgical History Surgical History (Updated 10/16/24 @ 15:24 by Juan Morataya PA-C) History of laparoscopic appendectomy H/O colonoscopy History of Problems with Anesthesia: No Social History Social History Housing: House Alcohol intake: former Patient Tobacco Use Status: Never used Tobacco e-Cigarette/Vaping Use: Never Used Second Hand Smoke Exposure: Yes service: No Current occupational status: employed Cognitive needs: No Hearing needs: No Vision needs: No Meds Allergies Allergy/AdvReac Type Severity Reaction Status Date / Time celecoxib (Celebrex) Allergy Intermediate palpitation Verified 10/16/24 14:14 s ibuprofen (IBUPROFEN) Allergy Mild STOMACH Verified 10/16/24 14:14 UPSET Active Medications: Current Medications Acetaminophen (Acetaminophen 325 Mg Tablet) 650 mg PO Q6H PRN PRN Reason: Pain, Mild 1-3,fever,headache Calcium Carbonate (Calcium Carbonate 750 Mg Tab.Chew) 750 mg PO Q4H PRN PRN Reason: Heartburn Fentanyl (Fentanyl Citrate/Pf 100 Mcg/2 Ml Vial) 25 mcg IVPUSH Q5M PRN PRN Reason: Pain, Moderate to Severe (Pain Scale 4-10) Stop: 10/02/24 14:23 Lactated Ringer's (Lr) 1,000 mls @ 80 mls/hr IVCONT .[id number] [facility] Last Admin: 10/02/24 00:15 Dose: 80 mls/hr Piperacillin Sod/Tazobactam (Sod 3.375 gm/ Sodium Chloride) 50 mls @ 100 mls/hr IV Q6H [facility] Last Infusion: 10/02/24 06:59 Dose: Infused Morphine Sulfate (Morphine Sulfate 2 Mg/Ml Cartridge) 2 mg IVPUSH Q4H PRN; Protocol PRN Reason: Pain, Severe (Pain Scale 7-10) Naloxone HCl (Naloxone Hcl 0.4 Mg/Ml Vial) 0.04 mg IVPUSH Q5M PRN PRN Reason: Excessive sedation or RR < 8 Ondansetron HCl (Ondansetron Hcl 4 Mg/2 Ml Vial) 4 mg IVPUSH Q8H PRN PRN Reason: Nausea and Vomiting Ondansetron HCl (Ondansetron Hcl 4 Mg/2 Ml Vial) 4 mg IVPUSH ONCE PRN PRN Reason: Nausea and Vomiting Stop: 10/02/24 14:23 Sodium Chloride (0.9 % Sodium Chloride Flush 3 Ml Syringe) [facility] Admin: 10/02/24 07:00 Dose: Not Given Exam Height,Weight and Vital Signs: Height 5 ft 7 in Weight 57.4 kg Last Vital Signs Temp 98.3 F 10/02/24 00:17 Pulse 58 10/02/24 02:11 Resp 16 10/02/24 06:00 BP 101/68 10/02/24 00:17 Pulse Ox 97 10/02/24 02:11 O2 Del Method Room Air 10/02/24 02:11 Pertinent Lab Results Pertinent Lab Results: Laboratory Tests 10/01/24 10/01/24 21:58 23:46 WBC 10.4 RBC 3.96 L Hgb 12.8 L Hct 36.7 L MCV 92.7 MCH 32.3 MCHC 34.9 RDW 12.6 Plt Count 303 MPV 7.7 L Immature Gran % (Auto) 0.4 Neut % (Auto) 74.7 H Lymph % (Auto) 16.7 L [place] % (Auto) 6.5 Eos % (Auto) 1.3 Baso % (Auto) 0.4 Lymph # (Auto) 1.7 [place] # (Auto) 0.7 Eos # (Auto) 0.1 Baso # (Auto) 0.0 Abs Immat Gran (auto) 0.04 H Absolute Neuts (auto) 7.8 Absolute Nucleated RBC 0.000 Nucleated RBC % (auto) 0.0 Sodium 136 Potassium 3.9 Chloride 104 Carbon Dioxide 23 Anion Gap 13 BUN 21 H Creatinine 0.92 Estim Creat Clear Calc 62.3 Estimated GFR > 60 Random Glucose 99 Calcium 8.4 Total Bilirubin 0.7 AST 49 H ALT 48 H Alkaline Phosphatase 155 H Total Protein 7.6 Albumin 3.7 Lipase 32 Urine Color Yellow Urine Appearance Clear Urine pH 6.5 Ur Specific [place] >= 1.030 H Urine Protein Negative Urine Glucose (UA) Negative Urine Ketones Trace Urine Blood Small (1+) H Urine Nitrite Negative Ur Leukocyte Esterase Negative Urine RBC 0-2 Urine WBC 0-5 Ur Squamous Epith Cells 0-2 Urine Bacteria None Seen Hyaline Casts 0-2 Narrative Narrative: EKG NSR rate 67 beats per minute left bundle-branch block no acute STT wave changes no acute ischemia Airway Mallampati Class: II TM Dist: >3cm Neck ROM: Full Loose/Missing/Broken Teeth: No Heart: RRR Lungs: clear to auscultation b/l Assessment and Plan Assessment Anesthesia Assessment: Anesthesia Plan Discussed Final Anesthetic Review Family History of Problems with Anesthesia: No History of Problems with Anesthesia: No NPO: Yes
--- NOTE | 2024-10-02 08:43 | PC.NURSE ---
Report given to short stay unit, pt planned for appendectomy.
--- NOTE | 2024-10-02 09:06 | PC.NURSE ---
MD SIM AWARE OF LEFT BBB. ASYMPTOMATIC.
--- NOTE | 2024-10-02 09:10 | PC.NURSE ---
MD SIM SPOKE TO MD SAGASTUME REGARDING LBBB AND TO BE SEEN BY A EDITORIAL INTERN.
[2024-10-02] MEDS: Lactated Ringers 1,000 ML 50 ML IVCONT (09:11)
--- NOTE | 2024-10-02 09:56 | P.OP_ITS ---
Operative Note Operative Note Date of Service: 10/02/24 Narrative: Preop diagnosis: Acute appendicitis Postop diagnosis: Acute appendicitis with a markedly indurated and inflamed appendix throughout the distal 2/3 Procedure: Laparoscopic appendectomy Surgeon: Clifford Holman MD exceptional children teacher assistant: IVAN Mclain The patient is a 69-year-old male admitted because of right lower quadrant pain with a CAT scan showing acute appendicitis. He understood the technique of the planned procedure as well as the risks, benefits, and alternatives He was brought to the operating room. He was placed supine under general anesthesia via endotracheal tube. A Thomas catheter was inserted. The abdomen was prepped and draped in the usual sterile fashion. A surgical time-out was done. The patient was receiving scheduled IV antibiotics. I made a short infraumbilical incision with a blade 15. This was carried down through the full-thickness of the skin subcutaneous fat down to the fascia. The fascia was incised. The peritoneum was entered. Through this incision a Guzman port was introduced. Pneumoperitoneum was introduced to a pressure of 15 mm Hg. From here on the rest of procedure was done under vision with the 10 mm laparoscope which we alternated with a 5 mm laparoscope, 30 degree. Two 5 mm ports introduced through small incisions in the lower quadrant as well as the suprapubic margin The patient was placed in a steep head-down [id number] position. Graspers were placed through the working ports. Examination of the right lower quadrant showed omentum covering the area of the appendix. I was able to peel this off with graspers. The appendix was exposed. I was able to visualize the entire appendix from the tip all the way to the base. The appendix was markedly inflamed and indurated, on most of its entire length. The base was viable. With traction on the appendix using graspers, we put this on stretch and used the [place] dissector to create a mesenteric window. I then used an Endo-KIKI 30 mm stapler and positioned this at the base of the appendix. This was fired and the appendix was transected. I used the LigaSure to divide the mesoappendix. The appendix was completely and was retrieved through the umbilical incision using an endobag We re-insufflated and reinserted all ports. Examination of the right lower quadrant showed the staple line to be intact. There was note of good hemostasis. I observed all 4 quadrants. There was no other pathology seen. There was no evidence of any bowel injury I pulled the omentum to cover the area of the dissection . I desufflated through the ports and removed polyps under vision with the laparoscope. The umbilical port was therefore removed last. The fascia umbilical incision was closed with a [id number] Polysorb 0 stitch. Skin closure was achieved on a ll incisions using Polysorb 4-0 subcuticular sutures All incisions were infiltrated with Marcaine 0.5% for postop analgesia. Steri- Strips and dressings were applied and the procedure was completed The patient tolerated the procedure well. There were no immediate complications. Initial and final counts of sponges and instruments were correct. Estimated blood loss was less than 10 cc . The Thomas catheter was removed. The patient was extubated without difficulty and transferred to the recovery room with stable vital signs.
--- NOTE | 2024-10-02 12:12 | PM.EVENT ---
Event Note Date of Service: 10/02/24 Event Note: Seen postop Underwent uneventful lap appendectomy earlier He looks comfortable Good pain control Stable vital signs Abdomen is soft and benign He is still in PACU -no beds available on the floor Since this was a very quick case and he looks well overall, he will be discharged from PACU once he is tolerating diet He understands the plan I have updated his family Charlette Time Spent With Patient Time: Total time managing care of this patient today ____ minutes.
--- NOTE | 2024-10-02 13:17 | P.DS_ITS ---
DS: Providers Provider Date of Service: 10/02/24 Date of admission: 10/01/24 23:24 Date of discharge: 10/02/24 Primary care physician: Neelam Mcgee MD Attending physician on admission: Clifford Holman Attending physician on discharge: Clifford Holman DS: Diagnosis Discharge Diagnosis (1) Acute appendicitis: Status: Acute DS: Summary Hospital Course Hospital Course: HPI AT ADMISSION: Jake Kirk is a 69 year old male with the ER for abdominal pain. He says that this started yesterday morning. He describes this has mostly on the lower abdomen to the right. He says that this persisted although this has been of low intensity. He also says that about 2 days ago, he had 3 episodes of vomiting and was unable to tolerate oral intake that time. He did not have pain yet then. In view of the persistence of his pain starting from yesterday, he came to the emergency room tonight. He says currently he is comfortable. He has minimal pain. HOSPITAL COURSE: The patient was admitted to the surgical service for further treatment of the acute appendicitis. He elected to proceed with laparoscopic appendectomy. He was added onto the OR schedule for that day. On 10/02/24, a laparoscopic appendectomy was performed by Dr. Holman without complication. The patient tolerated the procedure well. He had an uncomplicated recovery course. He was assessed in PACU following the procedure and he felt well and was tolerating a solid diet without nausea or vomiting, had good pain control. He was hemodynamically stable. His abdomen was benign with appropriate post op tenderness and clean and intact dressings. He felt ready for discharge. He was discharged to home on 10/02/24 in stable condition. He is to follow up in the office in 2 weeks. Status at Discharge Functional status at discharge: independent ambulation Overall status at discharge: patient is progressing back to baseline Time Attestation Discharge Coordination Time (in mins): 25 Quality: Safe Use of Opioids Does Pt have an Active Cancer Diagnosis on the Problem List?: No Quality: Stroke Does the patient have a stroke diagnosis?: No Physical Exam Vital Signs: Vital Signs: Last Vital Signs Temp 98.2 F 10/02/24 12:54 Pulse 70 10/02/24 12:54 Resp 20 10/02/24 12:54 BP 122/67 10/02/24 12:54 Pulse Ox 98 10/02/24 12:54 O2 Del Method Room Air 10/02/24 12:54 O2 Flow Rate 4 10/02/24 10:25 BMI result Body Mass Index 19.8 Const: General: comfortable, no acute distress and alert Orientation/consciousness: patient oriented x3 Resp: Effort & Inspection: normal respiratory effort GI: Other: dressings intact mild incisional tenderness Inspection: No distended Skin: General skin exam: no rashes or lesions noted Neuro: General: patient oriented x3 and moves all extremities DS: Data Data Completed and Pending Pending studies at discharge: Pending at discharge 10/02/24 09:44 Surgical [PTH] Routine Labs on day of discharge: Laboratory Results - last 24 hr 10/01/24 10/01/24 21:58 23:46 WBC 10.4 RBC 3.96 L Hgb 12.8 L Hct 36.7 L MCV 92.7 MCH 32.3 MCHC 34.9 RDW 12.6 Plt Count 303 MPV 7.7 L Immature Gran % (Auto) 0.4 Neut % (Auto) 74.7 H Lymph % (Auto) 16.7 L [place] % (Auto) 6.5 Eos % (Auto) 1.3 Baso % (Auto) 0.4 Lymph # (Auto) 1.7 [place] # (Auto) 0.7 Eos # (Auto) 0.1 Baso # (Auto) 0.0 Abs Immat Gran (auto) 0.04 H Absolute Neuts (auto) 7.8 Absolute Nucleated RBC 0.000 Nucleated RBC % (auto) 0.0 Sodium 136 Potassium 3.9 Chloride 104 Carbon Dioxide 23 Anion Gap 13 BUN 21 H Creatinine 0.92 Estim Creat Clear Calc 62.3 Estimated GFR > 60 Random Glucose 99 Calcium 8.4 Total Bilirubin 0.7 AST 49 H ALT 48 H Alkaline Phosphatase 155 H Total Protein 7.6 Albumin 3.7 Lipase 32 Urine Color Yellow Urine Appearance Clear Urine pH 6.5 Ur Specific [place] >= 1.030 H Urine Protein Negative Urine Glucose (UA) Negative Urine Ketones Trace Urine Blood Small (1+) H Urine Nitrite Negative Ur Leukocyte Esterase Negative Urine RBC 0-2 Urine WBC 0-5 Ur Squamous Epith Cells 0-2 Urine Bacteria None Seen Hyaline Casts 0-2 Discharge Plan Discharge Anticipated Discharge Date/Time: 10/03/24 07:02 Patient Disposition: Home, Self-Care Discharge Diagnosis: acute appendicitis Referrals: Clifford Holman MD [Physician, General Surgery] - 2 Weeks Neelam Dyer MD [Primary Care Provider, Internal Medicine] - 1 Week Discharge Medications: New docusate sodium [Colace] 100 mg capsule 100 mg PO BID Qty: 30 0RF oxycodone 5 mg tablet 5 mg PO Q4H PRN (Reason: pain (scale score 7-10)) Qty: 26 0RF Rx Instructions: Partial Fill upon patient request. Continued cholecalciferol (vitamin D3) 50 mcg (2,000 unit) capsule 50 mcg PO DAILY 90 Days Qty: 90 1RF Discharge Orders: Discharge Order (Routine); Ordered 10/02/24 Ordered By: Clifford Holman Diet: Advance to usual diet Activity on Discharge: No heavy lifting Stand Alone Forms: Patient Portal Discharge page, Work/School Release Print Language: Brune[place] Activity Restrictions/Additional Instructions: If the incision area is tender, you may apply an ice pack for short intervals (No more than 20 minutes on, followed by at least 20 minutes off). Do not apply heat. Do not use creams, lotions, or topical antibiotics. These can cause infection or allergic reaction. Ok to shower 24 hours after your surgery. Remove bandaids in 2 days and replace. You have steri strips (small white cloth strips) covering your incision- these will fall off ~1 week. Follow up in office with Dr. Holman in 2 weeks. ([phone]) No heavy lifting (>10-20lbs) or strenuous activity! Call Your Doctor If: -Your temperature exceeds 101.5? F -You experience excessive pain or swelling -You have an unexpected reaction to medication -You have excessive bleeding -You experience continued vomiting/nausea -Your incision begins to separate -Your incision shows signs of infection such as increased redness, swelling, excessive pain, drainage (light blood or clear fluid is normal) or heat Care Plan Goals: Return to baseline health and resume normal activities following recovery period. Health Concerns: acute appendicitis Plan of Treatment: s/p laparoscopic appendectomy f/u in office in 2 weeks pain control Assessment: Doing well post op.
--- NOTE | 2024-10-02 13:39 | MHC.CM.PN ---
PT JOSE PRIOR TOBEING SEEN BY CM PT [facility]
== END 2024-10-02 13:17 | disposition home or self-care (01) | DRG 399 ==
LOC: HO.ED 22:16 → HO.EDOVER 23:35
PROVIDERS: Admitting Provider Surgery; Emergency Provider Internal Medicine; PCP Internal Medicine; Visit Provider Surgery
PROC: 0DTJ4ZZ Resection of Appendix, Percutaneous Endoscopic Approach (ICD-10-PCS; CPT 44970; principal; 2024-10-02 09:00)
DX: K35.80 Unspecified acute appendicitis (principal)
CPT/HCPCS: 44970; 36415; 74177; 80053; 81001; 83690; 85025; 88304; 93005; 99221; 99285; J1100; J1171; J2003; J2405; J2543; J2704; J2795; J3010; J7120; Q9967

== ENCOUNTER → 2024-10-01 22:28 | Outpatient (BNV) | payer MEDICARE, SELFPAY | PROVIDERS: Admitting Provider Surgery; Emergency Provider Internal Medicine; PCP Internal Medicine; Visit Provider General Practice | DX: K35.80 Unspecified acute appendicitis (principal) | CPT/HCPCS: 74177 ==

== ENCOUNTER → 2024-10-01 23:24 | Outpatient (BNV) | payer MEDICARE, SELFPAY | PROVIDERS: Admitting Provider Surgery; Emergency Provider Internal Medicine; PCP Internal Medicine; Visit Provider Physician Assistant Surgical | DX: K35.80 Unspecified acute appendicitis (principal) | CPT/HCPCS: 99024; 99235; 99499 ==

== ENCOUNTER 2024-10-09 09:31 | Outpatient (AMB) | payer MEDICARE, MEDICAID, SELFPAY ==
[2024-10-09 09:32] VITALS: BP 116/76; PULSE 63; O2SAT 96; BMI 18.7
--- NOTE | 2024-10-09 09:32 | MHC.PC.OV ---
Vital Signs 10/09/24 09:32 Height 5 ft 7 in Weight 119 lb 8 oz BMI 18.7 BP 116/76 Blood Pressure Location Lt brachial Position Sitting Pulse 63 Pulse Source Pulse Oximeter Pulse Oximetry (%) 96 Oxygen Delivery Method Room Air Intake Visit Reasons: TCM Appendicitis 09/30 Nurse Practitioner Physician Assistant Required: No Accompanied by: Self / Same As Patient Allergies celecoxib (Celebrex) Allergy (Intermediate, Verified 10/09/24 09:58) palpitations ibuprofen (IBUPROFEN) Allergy (Mild, Verified 10/09/24 09:58) STOMACH UPSET Medication List - Last Reconciled 10/09/24 by Km Kumar MD cholecalciferol (vitamin D3) 50 mcg PO DAILY 90 days docusate sodium (Colace) 100 mg PO BID oxycodone 5 mg PO Q4H PRN Tobacco use date assessed: 10/09/24 Fall risk assessment: No Falls in past year Last assessed Fall Risk: 10/09/24 Dental Screening Dental Screen Date: 10/09/24 Did you have a dental visit in the last 12 months?: Yes Did you have a dental problem in the last 6 months where you did not have access to dental care?: No Was dental information given to patient?: Patient has dentist HPI TCM Appendicitis 09/30 HPI Details Patient comes in today for his TCM follow up He was admitted to [facility] briefly last week for appendicitis, diagnosed after her presented to the ER with persistent RLQ abdominal pain, nausea and vomiting/dry heaving He underwent elective laparoscopic appendectomy with Dr. Holman on 10/02/2024 and was subsequently discharged after a brief post-op recovery Patient states that he currently feels okay except for some lingering pain over his right lower abdomen and infraumbilical area that seems to be aggravated with exertional activities He denies any fever, headaches or dizziness Denies any chest pains, no SOB No nausea/vomiting - states that he is currently tolerating oral intake of both foods and drinks without any problems and that he's had a couple of bowel movements already over the past few days TCM TCM Information Date of Discharge 10/02/24 Discharged From [facility] Interactive Contact Date (Reference documentation from this date) 10/03/24 [facility] Medical History (Updated 10/09/24 @ 11:48 by Km Kumar MD) Fatty liver Hematuria Acute appendicitis Physical exam Impaired glucose tolerance Spider bite Lumbar degenerative disc disease Osteoarthritis of left hip Fx sacrum/coccyx-closed Eosinophilia Dyslipidemia Neutropenia Lumbar spondylosis Coccyalgia Surgical History (Updated 10/09/24 @ 11:42 by Km Kumar MD) History of laparoscopic appendectomy H/O colonoscopy Family History Father Pancreatic cancer Mother Stomach cancer Brother No problems noted. Sister No problems noted. Son No problems noted. Father Pancreatic cancer Mother Stomach cancer Brother No problems noted. Sister No problems noted. Son No problems noted. Social History Housing: House Alcohol intake: former Patient Tobacco Use Status: Never used Tobacco e-Cigarette/Vaping Use: Never Used Second Hand Smoke Exposure: Yes service: No Current occupational status: employed Cognitive needs: No Hearing needs: No Vision needs: No Questionnaire PHQ-9 Over the last 2 weeks, how often have you been bothered by any of the following problems? 1. Little interest or pleasure in doing things: not at all 2. Feeling down, depressed, or hopeless: not at all 3. Trouble falling or staying asleep, or sleeping too much: not at all 4. Feeling tired or having little energy: not at all 5. Poor appetite or overeating: not at all 6. Feeling bad about yourself - or that you are a failure or have let yourself or your family down: not at all 7. Trouble concentrating on things, such as reading the newspaper or watching television: not at all 8. Moving or speaking so slowly that other people could have noticed. Or the opposite - being so fidgety or restless that you have been moving around a lot more than usual: not at all 9. Thoughts that you would be better off or of hurting yourself in some way: not at all Total score: 0 Depression Screening Interpretation: Negative Depression Screening Done: Yes 04293 - PHQ-9 Billing: Yes Source: Developed by Drs. Edwin Matos, Shayy Garcia, Sal Marquez and colleagues, with an educational bentley from [employer]. Thrive Questionnaire Date Thrive assessed: 10/09/24 I am a: Patient What is your living situation today?: I have a steady place to live Within the past 12 months, did the food you bought not last and you didn't have the money to get more?: Never true Within the past 12 months, did you worry whether your food would run out before you got money to buy more?: Never true Do you have trouble paying for medicines?: No Do you have trouble getting transportation to medical appointments?: No Do you have trouble paying your heating and electricity bill?: No Do you have trouble taking care of your child, family member or friend?: No Do you have trouble with day-to-day activities such as bathing, preparing meals, shopping, managing finances, etc.?: No Are you currently unemployed and looking for a job?: No Are you interested in more education?: No Please select the resources that you would like help with: None Currently or been in a relationship where the following occur: No concerns reported THRIVE Score: 0 AUDIT C Alcohol Use Questionnaire (AUDIT-C) 1. How often do you have a drink containing alcohol?: Never 3. How often do you have six or more drinks on one occasion?: Never Total Score: 0 Score Reviewed/Action Taken: Yes DENISE-7 AMB Questionnaire DENISE-7 Date DENISE - 7 assessed: 10/09/24 Feeling nervous, anxious, or on edge: 0 = Not at all Not being able to stop or control worryin = Not at all Worrying too much about different things: 0 = Not at all Trouble relaxin = Not at all Being so restless that it is hard to sit still: 0 = Not at all Becoming easily annoyed or irritable: 0 = Not at all Feeling afraid as if something awful might happen: 0 = Not at all Total DENISE-7 score (0-4 normal; 5-9 mild; 10-14 moderate; 15-21 severe): 0 Source: Developed by Drs. Edwin Matos, Shayy Garcia, Sal Marquez and colleagues, with an educational bentley from [employer]. DENISE-7 Assessment Billing DENISE-7 Assessment Tool: DENISE-7 Assessment 92729 Review of Systems Const Denies chills, Denies fatigue, Denies fever(s) and Denies headache(s) ENT Denies dysphagia, Denies dizziness, Denies otalgia, Denies headache(s), Denies neck pain, Denies odynophagia and Denies sore throat Card Denies chest pain, Denies palpitations and Denies dyspnea Resp Denies chest congestion, Denies cough and Denies dyspnea GI Reports abdominal pain (mild, on and off over the right lower abdomen and infraumbilical area), Denies constipation, Denies dysphagia, Denies heartburn, Denies diarrhea, Denies nausea, Denies odynophagia and Denies vomiting Denies difficulty urinating, Denies dysuria, Denies nocturia and Denies urinary frequency Musc Denies back pain and Denies neck pain Skin/Breast Denies rash Neuro Denies dizziness and Denies headache(s) Endo Denies fatigue and Denies palpitations Physical exam (Primary Care) Vital Signs: Last Vital Signs Pulse 63 10/09/24 09:32 BP 116/76 10/09/24 09:32 Pulse Ox 96 10/09/24 09:32 Oxygen Delivery Method Room Air 10/09/24 09:32 BMI result Body Mass Index 18.7 Tobacco/Smoking Status: Tobacco use Status Tobacco use date assessed 10/09/24 10/09/24 09:41 Patient Tobacco Use Status Never used Tobacco 10/09/24 09:41 e-Cigarette/Vaping Use Never Used 10/09/24 09:41 PHQ-9: PHQ-9 Score PHQ-9: Total score 0 10/09/24 10:03 Depression Screening Interpretation: Negative Thrive Assessment: Date of Thrive Assessment Date Thrive assessed 10/09/24 10/09/24 09:41 Currently or been in a relationship where the following occur: No concerns reported Const General: no acute distress and alert HENMT Throat: Yes posterior oropharynx normal and Yes tonsils normal (no TP congestion) Neck Neck: Yes supple and No lymphadenopathy Thyroid: Thyroid normal Resp Auscultation: clear to auscultation bilaterally, no rales and no wheezes Cardio Rate: regular rate Rhythm: regular rhythm Heart sounds: no murmurs GI Palpation (GI): Soft to palpation, Tenderness to palpation present (GI) (MILD - over the right lower abdomen and infraumbilical area) with no rebound tenderness, no guarding and not rigid Auscultation: normal bowel sounds General: Yes no CVA tenderness Back/Spine/Pelvis Back: no CVA tenderness Skin Rashes: no rashes Extrem General: Yes no clubbing, cyanosis or edema Coding Level of Care Code TCM Mod MDM <= 7 Days Diagnoses Acute appendicitis, unspecified acute appendicitis type K35.80 Acute appendicitis type: unspecified acute appendicitis type Additional Codes DENISE-7 Assessment Billing - DENISE-7 Assessment Tool: DENISE-7 Assessment 59295 ([id number]) PHQ-9 - 94467 - PHQ-9 Billing: Yes ([id number]) Assessment & Plan Assessment & Plan (1) Acute appendicitis: Code(s): K35.80 - Unspecified acute appendicitis Category: Medical Qualifiers: Acute appendicitis type: unspecified acute appendicitis type Qualified Code(s): K35.80 - Unspecified acute appendicitis Plan: S/P laparoscopic appendectomy with Dr. Holman last week on 10/02/2024 Patient reports (+) occasional mild tenderness over the right lower abdomen and over the infraumbilical areas, mostly with exertional activities and prolonged walking Have advised patient that it is not unusual to still expect some lingering pain and/or discomfort over these areas for the next few weeks but these will eventually resolve or clear up in time Follow up with surgery as scheduled - he has an appointment scheduled with Dr. Holman on 10/23/2024 Plan To return as scheduled for his next annual physical examination with his PCP in March 2025
--- OUTSIDE RECORDS SUMMARY | 2024-10-09 10:03 | XMS_ITS | Clinical Summary ---
Author Organization [employer] Address [address] [place] [address] [address] [place] [address] Care Team Providers Care Dioramist Name Role Phone Unavailable Primary Care Provider [...] Relevant to Health Maintenance [facility]MEDICAID)
== END 2024-10-09 11:21 | disposition home or self-care (01) ==
LOC: HO.HMCH 09:31
PROVIDERS: PCP Internal Medicine; Visit Provider Internal Medicine
DX: K35.80 Unspecified acute appendicitis (principal)

== ENCOUNTER → 2024-10-09 09:31 | Outpatient (BNVA) | payer MEDICARE, MEDICAID, SELFPAY | PROVIDERS: PCP Internal Medicine; Visit Provider Internal Medicine | DX: Z48.815 Encounter for surgical aftercare following surgery on the digestive system (principal); Z90.49 Acquired absence of other specified parts of digestive tract | CPT/HCPCS: 96127; 99495 ==

== ENCOUNTER 2024-10-16 14:04 | Outpatient (AMB) | payer MEDICARE, MEDICAID, SELFPAY ==
[2024-10-16 14:12] VITALS: BP 100/63; PULSE 71; BMI 19.3
--- NOTE | 2024-10-16 14:12 | MHC.OFFVIS ---
Vital Signs 10/16/24 14:12 Height 5 ft 7 in Weight 123 lb BMI 19.3 BP 100/63 Blood Pressure Location Rt brachial Position Sitting Pulse 71 Intake Visit Reasons: s/p appendectomy Intake Note: Patient here s/p Laparoscopic appendectomy. Patient c/o: felt a pinch sensation this morning but improved after sitting down. Lt lower abdomen felt warm to touch. Surgery: 10-02-2024 Photographic Developer And Printer Required: No Accompanied by: sister Debbie Allergies celecoxib (Celebrex) Allergy (Intermediate, Verified 10/16/24 14:14) palpitations ibuprofen (IBUPROFEN) Allergy (Mild, Verified 10/16/24 14:14) STOMACH UPSET HPI HPI s/p appendectomy: Details: Overall doing well. Did not note some pain with ambulation this morning in the right lower quadrant. This was a sharp pain but has gotten better since this morning. Appetite and bowel function are progressing back to baseline. He states he eats small meals any way. He does note that he is going to the bathroom every other day, attributes this to his lower intake. He has been using the stool softeners as needed. He denies nausea or vomiting, fever, chills. He noted that he does get some pain in his ears and feels some swelling below his jaw every now and then. [facility] Medical History (Updated 10/10/24 @ 00:02 by Delicia Barnes) Fatty liver Hematuria Acute appendicitis Physical exam Impaired glucose tolerance Spider bite Lumbar degenerative disc disease Osteoarthritis of left hip Fx sacrum/coccyx-closed Eosinophilia Dyslipidemia Neutropenia Lumbar spondylosis Coccyalgia Surgical History (Updated 10/16/24 @ 15:24 by Juan Morataya PA-C) History of laparoscopic appendectomy H/O colonoscopy Family History Father Pancreatic cancer Mother Stomach cancer Brother No problems noted. Sister No problems noted. Son No problems noted. Father Pancreatic cancer Mother Stomach cancer Brother No problems noted. Sister No problems noted. Son No problems noted. Social History Housing: House Alcohol intake: former Patient Tobacco Use Status: Never used Tobacco e-Cigarette/Vaping Use: Never Used Second Hand Smoke Exposure: Yes service: No Current occupational status: employed Cognitive needs: No Hearing needs: No Vision needs: No Review of Systems Const All systems reviewed & are unremarkable except as noted in HPI and below Physical Exam Vital Signs: Last Vital Signs Pulse 71 10/16/24 14:12 BP 100/63 10/16/24 14:12 BMI result Body Mass Index 19.3 Const General: comfortable and no acute distress Orientation/consciousness: patient oriented x3 Resp Effort & Inspection: normal respiratory effort and able to speak in complete sentences GI Other: Incision sites healing well, no discharge. Nontender. Small induration deep to incision sites Inspection: No distended Palpation (GI): Soft to palpation, nontender, no guarding and not rigid Neuro General: patient oriented x3 Assessment & Plan Assessment & Plan (1) S/P laparoscopic appendectomy: Code(s): Z90.49 - Acquired absence of other specified parts of digestive tract Category: Medical Plan 61 year room health status post laparoscopic appendectomy on 10/02/2024 presenting for routine follow-up. Overall patient is doing well. He has been relatively pain-free aside from a sharp pulling sensation this morning in the right lower quadrant. I do not believe this is related to the surgery, and seems more musculoskeletal in nature. I recommended that the patient continue to monitor this and that he could follow up with his primary care if it persists. In regards to his ear pain and occasional swelling in the neck I recommended that he again follow up with his primary care. Appetite and bowel function are progressing back to normal in regards to his bowel movements I recommended that he use the Colace that was prescribed for him at discharge as needed to facilitate bowel movements. On exam his abdomen is soft and benign. Incision sites appear to be healing well no concern for infection at this time. I recommended that the patient continue activity restrictions for the next week, no heavy lifting greater than 15 20 lb. After that I recommended that he resume activity at half of his baseline and progress towards his baseline over time. At this point he is not requiring further follow up and can follow-up as needed with any concerns in the future. Coding Level of Care Code Global (40379) Diagnoses S/P laparoscopic appendectomy Z90.49
--- OUTSIDE RECORDS SUMMARY | 2024-10-16 14:49 | XMS_ITS | Clinical Summary ---
Author Organization [employer] Address [address] [place] [address] [address] [place] [address] Care Team Providers Care Mechanical Tech Name Role Phone Unavailable Primary Care Provider [...] Relevant to Health Maintenance [facility]ICAID)
== END 2024-10-16 14:25 | disposition home or self-care (01) ==
LOC: HO.HGS 14:05
PROVIDERS: PCP Internal Medicine
DX: Z90.49 Acquired absence of other specified parts of digestive tract (principal)
CPT/HCPCS: 99024

== ENCOUNTER → 2024-10-16 14:04 | Outpatient (BNVA) | payer MEDICARE, MEDICAID, SELFPAY | PROVIDERS: PCP Internal Medicine | DX: Z90.49 Acquired absence of other specified parts of digestive tract (principal) | CPT/HCPCS: 99212 ==